=== PATIENT | female | born 1950 | race Caucasian/White ===

== ENCOUNTER → 2020-12-11 08:22 | Outpatient (CLI) | payer MEDICARE, MEDICAID, SELFPAY ==
[2020-12-11] MEDS: COVID-19 VACC, Ad26(JANSSEN)/PF 0.5 ML IM (08:29)
== END ==
PROVIDERS: Visit Provider Internal Medicine
DX: Z23 Encounter for immunization (principal)
CPT/HCPCS: 0031A; 91303

== ENCOUNTER → 2021-08-05 11:52 | Outpatient (CLI) | payer MEDICARE, MEDICAID, SELFPAY ==
--- NOTE | 2021-08-05 12:02 | DI.RAD.S_ITS ---
PROCEDURE: XR KNEE LT 3V INDICATIONS: KNEE PAIN TECHNIQUE: 3 views of the knee were acquired. COMPARISON: None. FINDINGS: Bones: No fractures or dislocations. No suspicious bony lesions. Minimal patellofemoral and medial compartment osteophytosis. The joint spaces are maintained. Soft tissues: No joint effusion. No suspicious soft tissue calcifications. IMPRESSION: No acute osseous abnormality. Dictated by: Del Ray M.D. on 08/05/2021 at 12:48 Approved by: Del Ray M.D. on 08/05/2021 at 12:48
== END ==
PROVIDERS: Referring Provider Family Medicine; Visit Provider Family Medicine
DX: M25.562 Pain in left knee
CPT/HCPCS: 73562

== ENCOUNTER → 2023-04-18 07:08 | Outpatient (CLI) | payer OTHER, SELFPAY ==
--- NOTE | 2023-04-18 | DI.US.S_ITS ---
PROCEDURE: US ABDOMEN LIMITED INDICATIONS: LEFT GROIN PAIN TECHNIQUE: Real-time focused scanning was performed of the abdomen, with image documentation. COMPARISON: None. FINDINGS: Limited ultrasound examination of left inguinal region shows no inguinal hernia. No soft tissue mass or fluid. No enlarged lymph nodes. IMPRESSION: No abnormality is seen in left inguinal region to account for patient's symptoms. Dictated by: Jerome Tellez M.D. on 04/18/2023 at 9:54 Approved by: Jerome Tellez M.D. on 04/18/2023 at 9:55
== END ==
PROVIDERS: PCP Family Medicine; Referring Provider Family Medicine; Visit Provider Family Medicine
DX: R10.32 Left lower quadrant pain (principal)
CPT/HCPCS: 76705

== ENCOUNTER → 2023-06-30 12:15 | Outpatient (CLI) | payer OTHER, MEDICAID, SELFPAY ==
[2023-06-30 15:33] LABS: Add Manual Diff / Slide Review NO; Basophils Absolute Auto 100 /uL (0-100); Basophils Percent Auto 1.4 % (0-2); Eosinophils Absolute Auto 100 /uL (0-450); Hematocrit 39.3 % (36-46); Hemoglobin 13.4 g/dL (12.0-16.0); Lymphocytes Absolute Auto 1700 /uL (1100-4500); Lymphocytes Percent Auto 40.2 % (25-40); Mean Corpuscular HGB Conc 34.2 % (30-36); Mean Corpuscular Hemoglobin 31.3 PG (26-34); Mean Corpuscular Volume 91.5 fL (80-100); Monocytes Absolute Auto 400 /uL (0-900); Monocytes Percent Auto 9.9 % (3-14); Neutrophils Absolute Auto 2000 /uL (1500-7000); Neutrophils Percent Auto 45.5 % (50-75); Platelet Count 199 X10^3/uL (150-400); Red Blood Cell Count 4.29 X10^6/uL (4.0-5.2); Red Cell Distribution Width 13.2 % (11.6-14.8); White Blood Cell Count 4.3 X10^3/uL (4.5-11.0)
[2023-06-30 15:37] LABS: Hemoglobin A1C% w Est Avg Glu 5.2 % (4.0-6.0)
[2023-06-30 15:56] LABS: BUN Creatinine Ratio 13.3 (6-22); Blood Urea Nitrogen 11 mg/dL (7-17); Calcium 9.8 mg/dL (8.4-10.2); Carbon Dioxide 27 mmol/L (22-32); Chloride 102 mmol/L (98-107); Estimated Glomerular Filt Rate > 60 mL/min (>60); Glucose 80 mg/dL (80-110); HEMOLYSIS < 15 (0-50); Potassium 4.3 mmol/L (3.4-5.1); Sodium 137 mmol/L (137-145)
[2023-06-30 16:40] LABS: Appearance Urine UA CLEAR; Bilirubin Urine UA NEGATIVE (NEGATIVE); Color Urine UA YELLOW; Glucose Urine UA NEGATIVE (Negative); Ketones Urine UA NEGATIVE (NEGATIVE); Leukocyte Esterase Urine UA NEGATIVE (NEGATIVE); Nitrite Urine UA NEGATIVE (Negative); Occult Blood Urine UA NEGATIVE (Negative); Protein Urine UA NEGATIVE (Negative); Specific Gravity Urine UA <=1.005 (1.000-1.035); Urobilinogen Urine UA 0.2 E.U./dL (0.2)
[2023-06-30 17:03] LABS: Bacteria Urine None Seen; Culture Indicated Urine Cult Not Indicated; RBC Urine None Seen (0-5/HPF); Squamous Epithelial Cell Urine 0-1 /HPF (0-5/HPF); WBC Urine 0-1/HPF (0-5/HPF)
== END ==
PROVIDERS: PCP Family Medicine; Referring Provider Orthopaedic Surgery; Visit Provider Orthopaedic Surgery
DX: Z01.818 Encounter for other preprocedural examination (principal); R73.9 Hyperglycemia, unspecified; Z01.812 Encounter for preprocedural laboratory examination; N39.0 Urinary tract infection, site not specified
CPT/HCPCS: 36415; 80048; 81001; 83036; 85025; 93005

== ENCOUNTER 2023-11-29 14:39 | Emergency (ER) | payer OTHER, MEDICAID, SELFPAY ==
[2023-11-29 14:42] VITALS: BP 173/78; PULSE 74; RESP 18; TEMP 36.4; O2SAT 95; BMI 19.8
[2023-11-29] MEDS: SODIUM CHLORIDE 0.9% 1,000 ML 1000 ML IV (15:11)
[2023-11-29] MEDS: ONDANSETRON 4 MG/2 ML INJ IV (15:14)
[2023-11-29 15:24] LABS: Add Manual Diff / Slide Review NO; Basophils Absolute Auto 100 /uL (0-100); Eosinophils Absolute Auto 0 /uL (0-450); Eosinophils Percent Auto 0.2 % (2-4); Hematocrit 42.3 % (36-46); Hemoglobin 14.5 g/dL (12.0-16.0); Lymphocytes Absolute Auto 1300 /uL (1100-4500); Lymphocytes Percent Auto 20.7 % (25-40); Mean Corpuscular HGB Conc 34.3 % (30-36); Mean Corpuscular Hemoglobin 30.8 PG (26-34); Mean Corpuscular Volume 89.8 fL (80-100); Monocytes Absolute Auto 500 /uL (0-900); Monocytes Percent Auto 7.9 % (3-14); Neutrophils Absolute Auto 4600 /uL (1500-7000); Neutrophils Percent Auto 70.2 % (50-75); Platelet Count 227 X10^3/uL (150-400); Red Blood Cell Count 4.71 X10^6/uL (4.0-5.2); White Blood Cell Count 6.5 X10^3/uL (4.5-11.0)
--- NOTE | 2023-11-29 15:33 | PC.NURSE ---
patient states she was bit by her cat on Tuesday, she saw her PCP for this on Tuesday and was prescribed two antibiotics. her first dose was at 1700 Tuesday night. by 2099 he was feeling nauseated. Tuesday morning she started throwing up and her last dose of Abx was Tuesday morning.
[2023-11-29 15:37] LABS: Alanine Aminotransferase 22 IU/L (<35); Albumin 4.6 g/dL (3.5-5.0); Albumin Globulin Ratio 1.2 (1.0-2.8); Alkaline Phosphatase 90 U/L (38-126); Aspartate Aminotransferase 37 IU/L (14-36); BUN Creatinine Ratio 34.9 (6-22); Bilirubin Total 0.8 mg/dL (0.2-1.3); Blood Urea Nitrogen 22 mg/dL (7-17); Calcium 9.7 mg/dL (8.4-10.2); Carbon Dioxide 26 mmol/L (22-32); Chloride 102 mmol/L (98-107); Estimated Glomerular Filt Rate > 60 mL/min (>60); Globulin 3.9 g/dL (1.7-4.1); Glucose 127 mg/dL (80-110); HEMOLYSIS < 15 (0-50); Lipase 226 U/L (23-300); Potassium 3.1 mmol/L (3.4-5.1); Sodium 140 mmol/L (137-145); Total Protein 8.5 g/dL (6.3-8.2)
[2023-11-29 16:47] VITALS: PULSE 61; O2SAT 97
[2023-11-29] MEDS: SODIUM CHLORIDE 0.9% 1,000 ML 250 ML IV (16:48)
[2023-11-29] MEDS: POTASSIUM CHLORIDE IN WATER 10 MEQ/100 ML PIGGYBACK 100 MEQ IV ×2 (16:48→18:05)
[2023-11-29 17:00] VITALS: BP 154/72; PULSE 58; O2SAT 94
[2023-11-29 17:30] VITALS: BP 145/70; PULSE 61; RESP 16; O2SAT 96
[2023-11-29 18:00] VITALS: PULSE 66; O2SAT 96
[2023-11-29 18:03] VITALS: BP 150/68; PULSE 63; O2SAT 96
[2023-11-29 18:34] LABS: Bacteria Urine Occasional (0-1); Calcium Oxalate Crystals Urine Few; Culture Indicated Urine Cult Not Indicated; RBC Urine 0-1/HPF (0-5/HPF); Squamous Epithelial Cell Urine None Seen (0-5/HPF); Urine Volume 10mL (spun); WBC Urine 0-1/HPF (0-5/HPF)
--- NOTE | 2023-11-29 18:46 | ED.NAVMDI ---
HPI - Nausea/Vomiting/Diarrhea General Chief complaint: Nausea/Vomiting/Diarrhea Stated complaint: VOMITTING Time Seen by Provider: 11/29/23 16:33 Source: patient Mode of arrival: EMS History of Present Illness HPI Narrative: Patient is a 73-year-old female who is here for evaluation of several days of nausea and vomiting. States the symptoms started after she was started on antibiotics for a cat bite to her left forearm/hand. This was started by her primary doctor. She can not remember the name of the antibiotics. States she actually has not taken them since Tuesday (greater than 48 hours ago). She feels like that the redness on her hand where the question of an infection was is actually improving. No fevers. Prior to my evaluation she had received nausea medications and stated that she was feeling somewhat better. Related Data Previous Rx's Medication Instructions Recorded ondansetron 4 mg disintegrating 4 mg PO Q6H PRN nausea and 11/29/23 tablet vomiting #14 tabs Allergies Allergy/AdvReac Type Severity Reaction Status Date / Time Penicillins Allergy Unknown childhood Verified 11/29/23 14:46 Review of Systems Constitutional Constitutional: Reports system reviewed and no additional complaints, except as documented Gastrointestinal Gastrointestinal: Reports system reviewed and no additional complaints, except as documented Musculoskeletal Musculoskeletal: Reports system reviewed and no additional complaints, except as documented Integumentary/Breasts Skin/Breast: Reports system reviewed and no additional complaints, except as documented Patient History Social History Smoking Status: Former smoker Smoking Status: Former smoker Substance Use Type: does not use Exam Initial Vital Signs Initial Vital Signs: Vital Signs Temperature 97.6 F 11/29/23 14:42 Pulse Rate 74 11/29/23 14:42 Respiratory Rate 18 11/29/23 14:42 Blood Pressure 173/78 H 11/29/23 14:42 Pulse Oximetry 95 11/29/23 14:42 Oxygen Delivery Method Room Air 11/29/23 14:42 HENMT Head: normal to inspection and normocephalic Resp Effort & Inspection: normal respiratory effort Cardio Rate: regular rate GI Inspection: non-distended Skin Other: Small punctate area of redness on the dorsum of the left forearm just proximal to the wrist. No surrounding erythema. Course Orders Ordered: ED Orders 11/29/23 17:59 Urine Microscopic Stat Discontinued Medications Sodium Chloride (Normal Saline 0.9%) 1,000 mls @ 1,000 mls/hr IV BOLUS ONE Stop: 11/29/23 15:59 Last Infusion: 11/29/23 16:03 Dose: Infused Documented By: Admin: 11/29/23 15:11 Dose: 1,000 mls/hr Documented By: JORGE POTASSIUM CHLORIDE IN WATER (Potassium Cl 10 Meq/100 Ml Jaclyn) 10 meq in 100 mls @ 100 mls/hr IV Q1H BLANK Stop: 11/29/23 20:44 Last Admin: 11/29/23 19:00 Dose: Not Given Documented By: Admin: 11/29/23 19:00 Dose: Not Given Documented By: Infusion: 11/29/23 18:57 Dose: Infused Documented By: Admin: 11/29/23 18:05 Dose: 100 mls/hr Documented By: Infusion: 11/29/23 17:48 Dose: Infused Documented By: Admin: 11/29/23 16:48 Dose: 100 mls/hr Documented By: JORGE Sodium Chloride (Normal Saline 0.9%) 1,000 mls @ 250 mls/hr IV BOLUS ONE Stop: 11/29/23 20:34 Last Infusion: 11/29/23 18:54 Dose: Infused Documented By: Admin: 11/29/23 16:48 Dose: 250 mls/hr Documented By: JORGE Ondansetron HCl (Ondansetron 4 Mg/2 Ml Inj) 4 mg IV NOW PRN PRN Reason: Nausea And Vomiting Last Admin: 11/29/23 15:14 Dose: 4 mg Documented By: JORGE Ondansetron HCl (Ondansetron 4 Mg Odt) 4 mg PO NOW PRN PRN Reason: Nausea And Vomiting Ondansetron HCl (Ondansetron 4 Mg Odt Prepack) 1 bottle MISC DIRECTED ONE Stop: 11/29/23 18:48 Last Admin: 11/29/23 18:59 Dose: 1 bottle Documented By: MARY Vital Signs Vital signs: Vital Signs - 8 hr 11/29/23 16:47 11/29/23 17:00 11/29/23 17:00 Pulse Rate 61 58 L Respiratory Rate Blood Pressure 154/72 H Pulse Oximetry 97 94 Oxygen Delivery Method 11/29/23 17:30 11/29/23 17:30 11/29/23 18:00 Pulse Rate 61 66 Respiratory Rate 16 Blood Pressure 145/70 H Pulse Oximetry 96 96 Oxygen Delivery Method Room Air 11/29/23 18:03 11/29/23 18:03 Pulse Rate 63 Respiratory Rate Blood Pressure 150/68 H Pulse Oximetry 96 Oxygen Delivery Method MDM - Nausea/Vomiting/Diarrhea Lab Data Attestation: I reviewed the patient's lab results. 11/29/23 15:03 11/29/23 15:03 Labs: Lab Results 11/29/23 11/29/23 Range/Units 15:03 17:59 WBC 6.5 (4.5-11.0) X10^3/uL RBC 4.71 (4.0-5.2) X10^6/uL Hgb 14.5 (12.0-16.0) g/dL Hct 42.3 (36-46) % MCV 89.8 (80-100) fL MCH 30.8 (26-34) PG MCHC 34.3 (30-36) % RDW 13.0 (11.6-14.8) % Plt Count 227 (150-400) X10^3/uL Neut % (Auto) 70.2 (50-75) % Lymph % (Auto) 20.7 L (25-40) % [place] % (Auto) 7.9 (3-14) % Eos % (Auto) 0.2 L (2-4) % Baso % (Auto) 1.0 (0-2) % Neut # (Auto) 4600 (1592-4307) /uL Lymph # (Auto) 1300 (9928-3515) /uL [place] # (Auto) 500 (0-900) /uL Eos # (Auto) 0 (0-450) /uL Baso # (Auto) 100 (0-100) /uL Sodium 140 (137-145) mmol/L Potassium 3.1 L (3.4-5.1) mmol/L Chloride 102 (98-107) mmol/L Carbon Dioxide 26 (22-32) mmol/L BUN 22 H (7-17) mg/dL Creatinine 0.63 (0.52-1.04) mg/dL Estimated GFR > 60 (>60) mL/min BUN/Creatinine Ratio 34.9 H (6-22) Glucose 127 H (80-110) mg/dL Calcium 9.7 (8.4-10.2) mg/dL Total Bilirubin 0.8 (0.2-1.3) mg/dL AST 37 H (14-36) IU/L ALT 22 (<35) IU/L Alkaline Phosphatase 90 (38-126) U/L Total Protein 8.5 H (6.3-8.2) g/dL Albumin 4.6 (3.5-5.0) g/dL Globulin 3.9 (1.7-4.1) g/dL Albumin/Globulin Ratio 1.2 (1.0-2.8) Lipase 226 (23-300) U/L Urine RBC 0-1/hpf (0-5/HPF) Urine WBC 0-1/hpf (0-5/HPF) Ur Squamous Epith Cells None seen (0-5/HPF) Calcium Oxalate Crystal Few H Urine Bacteria Occasional (0-1) (None) Ur Culture Indicated? Cult not indicated Vol Urine Centrifuged 10ml (spun) Urine Dip Bedside Urine Glucose Negative Bedside Urine Bilirubin - Negative Bedside Urine Ketone +++ 80 Urine Specific [place] 1.030 Bedside Urine Occult Blood - Negative Bedside Urine pH 6.0 Bedside Urine Protein +/- 15 Bedside Urine Urobilinogen - Negative Bedside Urine Nitrite - Negative Bedside Urine Leukocytes - Negative Esterase MDM Narrative Medical decision making narrative: Patient was feeling better after nausea medication. Was able to tolerate oral intake. She has not taken any antibiotics in 48 hours and the wound that was in question appears well without signs of infection or abscess. Patient would like to not take anymore antibiotics rather than switch to something new. Not unreasonable given the fact that she has not taken antibiotics for the past couple days and the wound certainly isn't worsening. Will discharge home with nausea medication. She was given return precautions. She expressed understanding and agreement. Discharge Plan Departure Patient Disposition: Home Clinical Impression: Vomiting, Hypokalemia Instructions: DI for Vomiting -- Adult Activity Restrictions/Additional Instructions: I do recommend that you stop taking the antibiotics as the nausea having his most likely related to them. Recommend a bland diet and using the nausea medication as needed. Return to the emergency department for new symptoms. Prescriptions: New ondansetron 4 mg tablet,disintegrating 4 mg PO Q6H PRN (Reason: nausea and vomiting) Qty: 14 0RF Referrals: Brody Patrick MD [Primary Care Provider] - Stand Alone Forms: Patient Portal/API
[2023-11-29] MEDS: ONDANSETRON 4 MG ODT PREPACK 1 BOTTLE MISC (18:59)
== END 2023-11-29 19:00 | disposition home or self-care (01) ==
PROVIDERS: Emergency Medicine; Emergency Provider Emergency Medicine; PCP Family Medicine
DX: E87.6 Hypokalemia (principal); R11.2 Nausea with vomiting, unspecified
CPT/HCPCS: 36415; 80053; 81003; 81015; 83690; 85025; 99284; J2405

== ENCOUNTER 2023-11-30 14:30 | Inpatient (IN) | payer OTHER, MEDICAID, SELFPAY ==
[2023-11-30] VITALS (7 sets, daily range): BP systolic 150–172; BP diastolic 65–91; PULSE 58–65; RESP 16–20; TEMP 36.5–37; O2SAT 94–100; BMI 19.8; BMI 21.2
[2023-11-30] MEDS: ONDANSETRON 4 MG/2 ML INJ IV (15:05)
[2023-11-30 15:23] LABS: Add Manual Diff / Slide Review NO; Basophils Absolute Auto 0 /uL (0-100); Basophils Percent Auto 0.6 % (0-2); Eosinophils Absolute Auto 0 /uL (0-450); Eosinophils Percent Auto 0.2 % (2-4); Hematocrit 40.9 % (36-46); Lymphocytes Absolute Auto 1600 /uL (1100-4500); Lymphocytes Percent Auto 24.3 % (25-40); Mean Corpuscular HGB Conc 34.2 % (30-36); Mean Corpuscular Hemoglobin 30.8 PG (26-34); Mean Corpuscular Volume 89.8 fL (80-100); Monocytes Absolute Auto 500 /uL (0-900); Monocytes Percent Auto 8.2 % (3-14); Neutrophils Absolute Auto 4300 /uL (1500-7000); Neutrophils Percent Auto 66.7 % (50-75); Platelet Count 231 X10^3/uL (150-400); Red Blood Cell Count 4.56 X10^6/uL (4.0-5.2); White Blood Cell Count 6.5 X10^3/uL (4.5-11.0)
[2023-11-30 15:28] LABS: Prothrombin Time 11.6 SECONDS (9.4-12.5)
[2023-11-30 15:35] LABS: Alanine Aminotransferase 20 IU/L (<35); Albumin 4.1 g/dL (3.5-5.0); Albumin Globulin Ratio 1.2 (1.0-2.8); Alkaline Phosphatase 77 U/L (38-126); Aspartate Aminotransferase 33 IU/L (14-36); BUN Creatinine Ratio 39.3 (6-22); Bilirubin Total 0.6 mg/dL (0.2-1.3); Blood Urea Nitrogen 22 mg/dL (7-17); Calcium 9.4 mg/dL (8.4-10.2); Carbon Dioxide 36 mmol/L (22-32); Chloride 101 mmol/L (98-107); Estimated Glomerular Filt Rate > 60 mL/min (>60); Globulin 3.5 g/dL (1.7-4.1); Glucose 95 mg/dL (80-110); HEMOLYSIS < 15 (0-50); Lipase 259 U/L (23-300); Potassium 3.1 mmol/L (3.4-5.1); Sodium 139 mmol/L (137-145); Total Protein 7.6 g/dL (6.3-8.2)
[2023-11-30] MEDS: SODIUM CHLORIDE 0.9% 1,000 ML 1000 ML IV ×2 (16:17→18:58)
--- NOTE | 2023-11-30 18:14 | ED.NAVMDI ---
HPI - Nausea/Vomiting/Diarrhea General Chief complaint: Nausea/Vomiting/Diarrhea Stated complaint: Vomiting Time Seen by Provider: 11/30/23 16:07 Source: patient Mode of arrival: Ambulatory Limitations: no limitations History of Present Illness HPI Narrative: Patient is a 73-year-old female who arrives in the emergency department today for fevers and continued vomiting. I evaluated her here in the emergency department approximately 24 hours ago for the same symptoms. During that visit she had a relatively benign exam and labs and after nausea medication was tolerating oral intake the patient was discharged home. She returns today for continued symptoms. She states that despite the nausea she continues to vomit. Denies any urinary symptoms or change in bowel habits. No specific abdominal tenderness except for when she has episodes of vomiting. She also states she is having continued fevers. No chest pain or shortness of breath. Related Data Home Medications Medication Instructions Recorded Confirmed duloxetine 20 mg capsule,delayed 20 mg PO BID 11/30/23 11/30/23 release gabapentin 300 mg capsule 900 mg PO BEDTIME PRN Restless 11/30/23 11/30/23 Leg(S) metronidazole 500 mg tablet 500 mg PO 3XD 11/30/23 11/30/23 Previous Rx's Medication Instructions Recorded ondansetron 4 mg disintegrating 4 mg PO Q6H PRN nausea and 11/29/23 tablet vomiting #14 tabs Allergies Allergy/AdvReac Type Severity Reaction Status Date / Time Penicillins Allergy Unknown childhood Verified 11/29/23 14:46 Review of Systems Review of Systems ROS Unobtainable: All systems reviewed & are unremarkable except as noted in HPI and below Patient History Social History household members: none Smoking Status: Former smoker alcohol intake: never Smoking Status: Former smoker Substance Use Type: does not use Exam Initial Vital Signs Initial Vital Signs: Vital Signs Temperature 98.2 F 11/30/23 14:50 Pulse Rate 63 11/30/23 14:50 Respiratory Rate 18 11/30/23 14:50 Blood Pressure 153/91 H 11/30/23 14:50 Pulse Oximetry 94 11/30/23 14:50 Oxygen Delivery Method Room Air 11/30/23 14:50 Const General: cooperative and No ill appearing HENMT Head: normal to inspection and normocephalic GI Inspection: normal to inspection and non-distended Palpation: soft, No firm, No guarding and tender (Diffuse) Skin General: no rashes or lesions noted Neuro General: patient alert, patient awake, patient oriented x3 and moves all extremities Extrem General: capillary refill normal Course Orders Ordered: ED Orders 11/30/23 20:15 Consult to General Surgery Stat Acetaminophen (Acetaminophen 325 Mg Tablet) 650 mg PO Q6H PRN PRN Reason: Fever/Mild Pain (1-3) Hydromorphone HCl (Hydromorphone 0.5 Mg Inj) 0.5 mg IV Q2H PRN PRN Reason: Pain, Severe (7-10) Dextrose/Sodium Chloride (Dextrose 5%-0.45% Ns) 1,000 mls @ 100 mls/hr IV CONT BLANK Last Admin: 11/30/23 22:12 Dose: 100 mls/hr Documented By: ENOCH Levofloxacin (Levaquin) 250 mg in 50 mls @ 50 mls/hr IV Q24H BLANK Ibuprofen (Ibuprofen 600 Mg Tablet) 600 mg PO Q6H PRN PRN Reason: Fever/Mild Pain (1-3) Naloxone HCl (Naloxone 0.4 Mg/Ml Vial) 0.2 mg IV Q2MIN PRN PRN Reason: Opiate Reversal Ondansetron HCl (Ondansetron 4 Mg/2 Ml Inj) 4 mg IV NOW PRN PRN Reason: Nausea And Vomiting Last Admin: 11/30/23 15:05 Dose: 4 mg Documented By: USMAN Ondansetron HCl (Ondansetron 4 Mg Odt) 4 mg PO NOW PRN PRN Reason: Nausea And Vomiting Oxycodone HCl (Oxycodone Ir 5 Mg Tablet) 5 mg PO Q3H PRN PRN Reason: Pain, Moderate (4-6) Discontinued Medications Sodium Chloride (Normal Saline 0.9%) 1,000 mls @ 1,000 mls/hr IV BOLUS ONE Stop: 11/30/23 16:48 Last Infusion: 11/30/23 17:28 Dose: Infused Documented By: Admin: 11/30/23 16:17 Dose: 1,000 mls/hr Documented By: SIRENA Sodium Chloride (Normal Saline 0.9%) 1,000 mls @ 1,000 mls/hr IV BOLUS ONE Stop: 11/30/23 17:06 Last Admin: 11/30/23 18:48 Dose: Not Given Documented By: SIRENA Sodium Chloride (Normal Saline 0.9%) 1,000 mls @ 1,000 mls/hr IV BOLUS ONE Stop: 11/30/23 19:13 Last Admin: 11/30/23 18:58 Dose: 1,000 mls/hr Documented By: SIRENA Levofloxacin (Levaquin) 500 mg in 100 mls @ 100 mls/hr IV NOW ONE Stop: 11/30/23 21:44 Last Admin: 11/30/23 21:32 Dose: 100 mls/hr Documented By: DAVID Lorazepam (Lorazepam 2 Mg/Ml Inj) 0.5 mg IV NOW ONE Stop: 11/30/23 18:15 Last Admin: 11/30/23 18:57 Dose: 0.5 mg Documented By: SIRENA Vital Signs Vital signs: Vital Signs - 8 hr 11/30/23 14:50 Temperature 98.2 F Pulse Rate 63 Respiratory Rate 18 Blood Pressure 153/91 H Pulse Oximetry 94 Oxygen Delivery Method Room Air MDM - Nausea/Vomiting/Diarrhea Medical Records Attestation: I reviewed the patient's medical records. Lab Data Attestation: I reviewed the patient's lab results. 11/30/23 15:06 11/30/23 15:06 Labs: Lab Results 11/30/23 11/30/23 Range/Units 15:06 19:00 WBC 6.5 (4.5-11.0) X10^3/uL RBC 4.56 (4.0-5.2) X10^6/uL Hgb 14.0 (12.0-16.0) g/dL Hct 40.9 (36-46) % MCV 89.8 (80-100) fL MCH 30.8 (26-34) PG MCHC 34.2 (30-36) % RDW 13.0 (11.6-14.8) % Plt Count 231 (150-400) X10^3/uL Neut % (Auto) 66.7 (50-75) % Lymph % (Auto) 24.3 L (25-40) % [place] % (Auto) 8.2 (3-14) % Eos % (Auto) 0.2 L (2-4) % Baso % (Auto) 0.6 (0-2) % Neut # (Auto) 4300 (5060-4801) /uL Lymph # (Auto) 1600 (8687-2337) /uL [place] # (Auto) 500 (0-900) /uL Eos # (Auto) 0 (0-450) /uL Baso # (Auto) 0 (0-100) /uL PT 11.6 (9.4-12.5) SECONDS INR 1.0 (0.9-1.3) Sodium 139 (137-145) mmol/L Potassium 3.1 L (3.4-5.1) mmol/L Chloride 101 (98-107) mmol/L Carbon Dioxide 36 H (22-32) mmol/L BUN 22 H (7-17) mg/dL Creatinine 0.56 (0.52-1.04) mg/dL Estimated GFR > 60 (>60) mL/min BUN/Creatinine Ratio 39.3 H (6-22) Glucose 95 (80-110) mg/dL Calcium 9.4 (8.4-10.2) mg/dL Total Bilirubin 0.6 (0.2-1.3) mg/dL AST 33 (14-36) IU/L ALT 20 (<35) IU/L Alkaline Phosphatase 77 (38-126) U/L Total Protein 7.6 (6.3-8.2) g/dL Albumin 4.1 (3.5-5.0) g/dL Globulin 3.5 (1.7-4.1) g/dL Albumin/Globulin Ratio 1.2 (1.0-2.8) Lipase 259 (23-300) U/L SARS-CoV-2 (PCR) Negative (Negative) Influenza A (RT-PCR) Flu a negative (NEGATIVE) Influenza B (RT-PCR) Flu b negative (NEGATIVE) RSV (PCR) Negative (Negative) Urine Dip Bedside Urine Glucose Negative Bedside Urine Bilirubin - Negative Bedside Urine Ketone +++ 80 Urine Specific [place] 1.030 Bedside Urine Occult Blood - Negative Bedside Urine pH 6.0 Bedside Urine Protein - Negative Bedside Urine Urobilinogen - Negative Bedside Urine Nitrite - Negative Bedside Urine Leukocytes - Negative Esterase Imaging Data CT scan - abdomen/pelvis: Radiologist's Impression: PROCEDURE: CT ABDOMEN W CON INDICATIONS: fever and vomiting TECHNIQUE: After the administration of intravenous contrast, 5 mm thick sections acquired from the diaphragms to the iliac crests. 5 mm thick coronal and sagittal reformats were acquired. For radiation dose reduction, the following was used: automated exposure control, adjustment of mA and/or kV according to patient size. COMPARISON: None. FINDINGS: Image quality: Diagnostic. Lower Chest: No significant findings. ABDOMEN: Liver: No solid mass. Gallbladder: Marked distension of the gallbladder, with a stone at the gallbladder neck measuring 1.6 centimeters. May mild wall thickening at the neck of the gallbladder. Biliary ducts: No biliary dilation. Pancreas: No ductal dilation. Spleen: Size is within normal limits. Adrenal Glands: No adrenal nodules. Kidneys and Ureters: No hydronephrosis. No solid mass. No complex renal cystic lesion which requires follow up. Stomach and Bowel: Normal colonic caliber, without significant wall thickening. Peritoneum: No abnormal intraperitoneal fluid. No free air. Ventral Wall: No hernia. Abdominal Nodes: No retroperitoneal or mesenteric adenopathy by size criteria. Vessels: Aorta and inferior vena cava are normal in size. Bones: No aggressive osseous abnormality. IMPRESSION: Suspected in acute cholecystitis, with gallbladder hydrops and a large stone at the gallbladder neck, with associated mild gallbladder wall thickening. MDM Narrative Medical decision making narrative: The assumption yesterday when she was seen here in the emergency department that she was vomiting because of the antibiotics that she started to take because of a cat bite. It has now been 3 days since her last dose of antibiotics and she is still vomiting. Advised patient that we should look further into her symptoms as now I am less concerned that it is the antibiotic that is causing her issues and potentially something new. CT scan shows signs of acute cholecystitis. This is in the setting of no leukocytosis and normal LFTs and lipase. I did discuss the case with Dr. Bland. We will admit for further evaluation and treatment of what appears to be acute cholecystitis. Discussed this with the patient. She expressed understanding and agreement as well. Discharge Plan Departure Patient Disposition: Admitted As Inpatient Clinical Impression: Acute cholecystitis Admit Date/Time: 11/30/23 20:15 Admit Provider: Dax Bland
[2023-11-30] MEDS: LORazepam 2 MG/ML INJ 0.5 MG IV (18:57)
--- NOTE | 2023-11-30 19:13 | PC.NURSE ---
Pt was in Ed yesterday. Returns for worsening nausea and vomiting and increased weakness. Pt reports that she cannot keep anything down. Pt also states that the zofran she was prescribed made her more nauseous. Pt a&ox4. Denies fever.
[2023-11-30 19:56] LABS: Influenza A - CEPHEID Flu A NEGATIVE (NEGATIVE); Influenza B - CEPHEID Flu B NEGATIVE (NEGATIVE); Respiratory Syncytial Virus Negative (Negative)
[2023-11-30 20:22] LABS: COVID-19 CEPHEID 4-PLEX PCR Negative (Negative)
[2023-11-30] MEDS: levoFLOXacin 500 MG/100 ML PIGGYBACK 100 MG IV (21:32)
--- NOTE | 2023-11-30 21:56 | CM.MNRNOTE ---
Pt. admitted to room 209, oriented to her room. Showed her the call light & encouraged to nursing staff for assistance. Denies pain at this time, will continue plan of care & monitor.
[2023-11-30] MEDS: DEXTROSE 5%-0.45% NS 1,000 ML 100 ML IV (22:12)
[2023-12-01] VITALS (16 sets, daily range): BP systolic 138–183; BP diastolic 55–78; PULSE 57–79; RESP 15–92; TEMP 36.3–37.2; O2SAT 18–97; BMI 21.2
--- NOTE | 2023-12-01 | PATH_ITS ---
[facility] Accession Number: [id number] No. of containers..01 Tissue . 01 Material submitted: . gallbladder - GALLBLADDER . 01 Diagnosis: GALLBLADDER, CHOLECYSTECTOMY: Mild chronic, calculous cholecystitis with reactive changes. Negative for dysplasia and malignancy. MRV 12/06/20231648 Local . 01 Electronically signed: . Any Hinson MD, Pathologist NPI- [id number] . 01 Gross description: . The specimen is received in formalin, labeled with the patient's name, , and gallbladder, and consists of a large intact gallbladder measuring 12.0 x 7.0 x 3.1 cm with sands to congested serosa. The cystic duct margin is inked blue. No pericystic lymph node is identified. Opening the specimen reveals the lumen to be filled with numerous yellow, multifaceted calculi measuring up to 1.6 cm in greatest dimension grossly obstructing the cystic duct and admixed with sands viscous fluid. The mucosa is sands, trabecular, and diffusely denuded with no discoloration, polyps, or lesions identified. The samaniego average 0.1 cm thick. Operations Dispatcher sections to include the cystic duct margin and full-thickness sections are submitted in cassette A1. ([id number]) /FRR 12/06/20231648 Local . 01 Pathologist provided ICD-10: K80.10 . 01 CPT . 993646 Specimen Comment: A courtesy copy of this report has been sent to [phone] Performed at: 01 [facility] [address] [place] [address] Suite [facility], [place], [place] [id number] MD Barry Centeno MD Phone: [phone]
--- NOTE | 2023-12-01 12:22 | PM.HP.1 ---
History of Present Illness History of Present Illness Date Patient Seen: 12/01/23 Time Patient Seen: 12:22 Chief complaint: Vomiting Narrative: Louise is a 73-year-old woman who presented with several days of nausea and epigastric abdominal pain. A CT scan showed a severely distended gallbladder with a obstructing gallstone in the neck of the gallbladder. [facility] Social History household members: none Smoking Status: Former smoker alcohol intake: never Meds Home Medications and Allergies Home Medications Medication Instructions Recorded Confirmed Type ondansetron 4 mg disintegrating 4 mg PO Q6H PRN nausea and 11/29/23 11/30/23 Rx tablet vomiting #14 tabs duloxetine 20 mg capsule,delayed 20 mg PO BID 11/30/23 11/30/23 History release gabapentin 300 mg capsule 900 mg PO BEDTIME PRN Restless 11/30/23 11/30/23 History Leg(S) metronidazole 500 mg tablet 500 mg PO 3XD 11/30/23 11/30/23 History Allergies Allergy/AdvReac Type Severity Reaction Status Date / Time Penicillins Allergy Unknown childhood Verified 11/29/23 14:46 Exam Vital Signs (past 8 hours): - 12/01/23 06:00 12/01/23 07:00 12/01/23 08:00 Temperature 98.4 F 98.0 F Pulse Rate 59 L 61 Respiratory Rate 17 16 Blood Pressure 143/58 H 138/66 Pulse Oximetry 94 96 Oxygen Delivery Method Room Air Oxygen Flow Rate 0 0 12/01/23 08:00 Temperature Pulse Rate Respiratory Rate Blood Pressure Pulse Oximetry 96 Oxygen Delivery Method Room Air Oxygen Flow Rate Oxygen Delivery Method Room Air Oxygen Flow Rate 0 Narrative Exam Narrative: Abdomen is soft Negative Ro's sign Objective Labs 11/30/23 15:06 11/30/23 15:06 Labs: Laboratory Results - last 24 hr 11/30/23 11/30/23 15:06 19:00 WBC 6.5 RBC 4.56 Hgb 14.0 Hct 40.9 MCV 89.8 MCH 30.8 MCHC 34.2 RDW 13.0 Plt Count 231 Neut % (Auto) 66.7 Lymph % (Auto) 24.3 L [place] % (Auto) 8.2 Eos % (Auto) 0.2 L Baso % (Auto) 0.6 Neut # (Auto) 4300 Lymph # (Auto) 1600 [place] # (Auto) 500 Eos # (Auto) 0 Baso # (Auto) 0 PT 11.6 INR 1.0 Sodium 139 Potassium 3.1 L Chloride 101 Carbon Dioxide 36 H BUN 22 H Creatinine 0.56 Estimated GFR > 60 BUN/Creatinine Ratio 39.3 H Glucose 95 Calcium 9.4 Total Bilirubin 0.6 AST 33 ALT 20 Alkaline Phosphatase 77 Total Protein 7.6 Albumin 4.1 Globulin 3.5 Albumin/Globulin Ratio 1.2 Lipase 259 SARS-CoV-2 (PCR) Negative Influenza A (RT-PCR) Flu a negative Influenza B (RT-PCR) Flu b negative RSV (PCR) Negative Assessment & Plan Assessment and plan (1) Acute cholecystitis: Status: Acute Plan We reviewed the risks and benefits of laparoscopic cholecystectomy for acute cholecystitis and she would like to proceed. Quality VTE Deep Vein Thrombosis/Pulmonary Embolism Present on Admission: No
--- NOTE | 2023-12-01 14:17 | PC.NURSE ---
1416--to OR via bed
[2023-12-01] MEDS: ONDANSETRON 4 MG/2 ML INJ IV (14:37)
[2023-12-01] MEDS: LACTATED RINGERS 1,000 ML 42 ML IV (14:38)
--- NOTE | 2023-12-01 15:12 | CM.DANOTE ---
Initial DCP Assessment Note Reviewed EMR and team rounds for pt's medical status and updates. This PRODUCTION TROUBLESHOOTER was not able to meet with pt in person at the time of this assessment due to her being in surgery. Pt resides independently in her own home, unable to assess support system at this time. Will continue to assess d/c needs once pt is available post-operatively. Payor: Arlene Laird PCP: Dr. Patrick Pt is a 73 year-old F who presented for the last 2-days to the ED with c/o persistent fevers, nausea and vomiting. CT imaging in the ED revealed a very distended gallbladder and a stone in the neck of the gallbladder. Surgery was consulted, and a plan was made to admit pt for planned laparoscopic cholecystectomy, which is currently being done. DCP will continue to follow and assist with any evolving home d/c needs, likely tomorrow. Discharge Planning/Care Management CM Discharge Assessment Start: 12/01/23 15:08 Freq: Status: Active Protocol: Document 12/01/23 15:11 DPL (Rec: 12/01/23 15:12 DPL [id number]) Discharge Planning Assessment Assigned Plastic Surgery Manager BRIDGET Huertas Advance Directives? Yes: POLST Advance Directives on File No History Provided By Medical Record Expected Length of Stay 2 Has Patient been admitted in last 30 No days? Prior Living Arrangements House Household Members none Type of transporation used prior to Drives own vehicle admit Independent with ADL's Yes Is patient alert and oriented? Yes Caregiver for Another No Comment U/K, pt was in surgery at the time of this assessment. Comment No anticipated home d/c needs at this time. Barriers to Discharge No Discharge Plan Home Transportation Arrangement Friend Referrals Initiated None needed Review Status In Process Please Provide Date Initial DC 12/01/23 Assessment Was Performed
--- NOTE | 2023-12-01 15:39 | SUR.OPER ---
Supine on padded OR bed, head on pillow, right arm secured on padded arm board at <90 degrees abduction, left arm padded and tucked at side. legs uncrossed, safety belt at thigh, tape over blanket over lower legs.
[2023-12-01] MEDS: BUPIVACAINE 0.5% (PF) 30 ML, EPINEPHrine 0.15 MG INJ (16:13)
--- NOTE | 2023-12-01 17:13 | PC.NURSE ---
report given to Georgia Fitch RN
--- NOTE | 2023-12-01 17:28 | PM.OP.1 ---
Operative Date/Time/Diagnoses Date of procedure: 12/01/23 Time of procedure: 17:28 Pre-op diagnosis: Acute cholecystitis Post-op diagnosis: same Procedure & Clinicians Procedure: Laparoscopic cholecystectomy Same procedure as scheduled: Yes Surgeon: Rojelio Rajan Anesthesia Type: General Operative Notes Procedure in detail: The patient was given preoperative antibiotics. The patient was brought to the operating room and placed on the table in the supine position. General endotracheal anesthesia was induced. The abdomen was prepped and draped. A time-out was performed. We made a 1 cm infraumbilical incision. We dissected down to the base of the umbilical stalk using cautery. We grasped the umbilical stalk with a Villa clamp to elevate the abdominal wall. We scored the fascia in the midline with cautery. We pierced the peritoneum with a Peon clamp. The Bailee port was placed and the abdomen was insufflated to 15 mmHg. A 5 mm 30 degree laparoscopic was inserted. There was no evidence of any injury from the entry. Next, we placed 5 mm ports in the subxiphoid position and right upper quadrant at the midclavicular line and anterior axillary line. The patient was then positioned in reverse Trendelenburg and the table was tilted to the left. The gallbladder was significantly distended and was decompressed with an aspiration needle. Approximately 100 mL of relatively clear fluid was aspirated consistent with a gallbladder hydrops. Once decompressed the gallbladder was then grasped at the dome and retracted cephalad. We then dissected the cystic structures with a combination of hook cautery and blunt dissection. We obtained a critical view. We placed clips on the cystic duct and artery and divided the cystic duct and artery sharply between the clips. The gallbladder was then dissected off the liver and placed in a specimen retrieval bag. We irrigated the right upper quadrant and all the aspirate returned clear. We then removed the 5 mm ports under direct vision we removed the Bailee port. The fascial incision had to be increased to a proximally 2 cm to retrieve the specimen. We then injected some local into the fascia and closed the fascia with 4 interrupted 0 Vicryl sutures. The skin incisions were closed with 4-0 Monocryl and Steri-Strips were applied. Band-Aids were applied over the Steri-Strips. EBL: 20 mL Specimen: Gallbladder and contents Post-operative Condition: stable Disposition: PACU
[2023-12-01] MEDS: ACETAMINOPHEN IV 1,000 MG/100 ML VIAL 400 MG IV (17:35)
--- NOTE | 2023-12-01 18:40 | PC.NURSE ---
Addendum entered by Georgia Saunders R.N. 12/01/23 19:23: Patients blood pressure was 180s/70s, given 10mg of iv labetolol and down to 170s/70s. Will pass on to [employer] Development Specialist Manager RN that this was given. She is resting comfortably. Original Note: Patient back from surgery, she has 4 bandaide dressings and she is snoozing. Blood pressure a bit high at 170/72, called and will give patient 10mg of iv lebatolol. Patients code status also changed to DNR. She is now heplocked and resting.
[2023-12-01] MEDS: LABETALOL 20 MG/4 ML SYRINGE 10 MG IV (19:10)
[2023-12-01] MEDS: DULOXETINE 20 MG CAPSULE PO (21:24)
[2023-12-02] VITALS: BP 161/83; PULSE 60; RESP 16; TEMP 36.6; O2SAT 95
[2023-12-02 04:00] VITALS: O2SAT 100
[2023-12-02 04:40] VITALS: BP 105/62; PULSE 89; RESP 18; TEMP 37; O2SAT 100
[2023-12-02 07:58] VITALS: BP 149/73; PULSE 69; RESP 19; TEMP 36.3; O2SAT 94
[2023-12-02 08:00] VITALS: O2SAT 94
[2023-12-02] MEDS: SCOPOLAMINE 1 PATCH TOP (08:41)
[2023-12-02] MEDS: IBUPROFEN 600 MG TABLET PO (08:41)
[2023-12-02] MEDS: DULOXETINE 20 MG CAPSULE PO (08:42)
--- NOTE | 2023-12-02 09:41 | CM.DPNOTE ---
DCP Note LABORATORY ANIMAL CARETAKER reviewed EMR. Per chart review, dc order in. LABORATORY ANIMAL CARETAKER entered room and introduced self and role. pt standing in room. Pt reports living alone/is indep at baseline. Uses a cane. LABORATORY ANIMAL CARETAKER answered questions about HH. LABORATORY ANIMAL CARETAKER answered questions about Medicaid benefits. Pt reports she has friends/neighbors to support her with her needs. f/u with PCP already schedule for next week (Dr. Patrick). Pt reports ride will be here at 11am. LABORATORY ANIMAL CARETAKER updated RN about ride. Plan; pt to dc home today with friend to transport. No CM needs at this time. Pt will f/u with PCP next week. CM team will follow as needed. BRIDGET Jarvis
--- NOTE | 2023-12-02 10:59 | PC.NURSE ---
Pt discharged home at 1045, escorted off floor in wheelchair accompanied by hospital staff. IV removed, discharge teaching completed including new medications, wound care and follow up appointments. No questions or concerns. Patient left the floor with all belongings.
== END 2023-12-02 10:55 | disposition home or self-care (01) | DRG 419 ==
LOC: ED 20:15 → AC 20:16
PROVIDERS: Emergency Medicine; Surgery; Admitting Provider Surgery; Emergency Provider Emergency Medicine; PCP Family Medicine; Referring Provider Emergency Medicine; Visit Provider Surgery
PROC: 0FT44ZZ Resection of Gallbladder, Percutaneous Endoscopic Approach (ICD-10-PCS; CPT 47562; principal; 2023-12-01 15:45)
DX: K80.01 Calculus of gallbladder with acute cholecystitis with obstruction (principal); E87.6 Hypokalemia; Z87.891 Personal history of nicotine dependence
CPT/HCPCS: 0241U; 36415; 47562; 74160; 80053; 81003; 81015; 83690; 85025; 85610; 96374; 99221; 99284; 99285; J0136; J0171; J1100; J1956; J2060; J2405; J2704; J3010

== ENCOUNTER 2024-03-21 12:12 | Emergency (ER) | payer OTHER, MEDICAID, SELFPAY ==
[2023-11-30 21:43] VITALS: BMI 21.2
[2024-03-21] VITALS (11 sets, daily range): BP systolic 100–133; BP diastolic 50–58; PULSE 75–87; RESP 15–24; TEMP 37.2; O2SAT 92–97; BMI 19.8
--- NOTE | 2024-03-21 12:18 | ED_ITS ---
HPI - Nausea/Vomiting/Diarrhea General Chief complaint: Nausea/Vomiting/Diarrhea Stated complaint: Vomiting Time Seen by Provider: 03/21/24 12:13 Source: patient Mode of arrival: EMS History of Present Illness HPI Narrative: Patient 73-year-old female history of cholecystectomy in November 2023 presenting today with nausea vomiting and diarrhea. She reports it started around 11:00 p.m. last night. She is unable to keep anything in previously she had these symptoms when she had cholelithiasis however since then she has had a cholecystectomy. She feels a little bit dizzy but she has not passed out. No significant abdominal pain. She has had multiple episodes of nonbloody diarrhea. She denies any chest pain or palpitations. Related Data Home Medications Medication Instructions Recorded Confirmed duloxetine 20 mg capsule,delayed 20 mg PO BID 11/30/23 12/14/23 release gabapentin 300 mg capsule 900 mg PO BEDTIME PRN Restless 11/30/23 12/14/23 Leg(S) metronidazole 500 mg tablet 500 mg PO 3XD 11/30/23 12/14/23 Previous Rx's Medication Instructions Recorded ondansetron 4 mg disintegrating 4 mg PO Q6H PRN nausea and 11/29/23 tablet vomiting #14 tabs tramadol 50 mg tablet 50 mg PO TID PRN pain #14 tabs 12/02/23 ondansetron 4 mg disintegrating 4 mg PO Q8H PRN nausea and 03/21/24 tablet vomiting #10 tabs Allergies Allergy/AdvReac Type Severity Reaction Status Date / Time Penicillins Allergy Unknown childhood Verified 03/21/24 12:14 Patient History Medical History Fibromyalgia Surgical History Hx laparoscopic cholecystectomy Social History household members: none Smoking Status: Former smoker alcohol intake: never Smoking Status: Former smoker alcohol intake frequency: holidays/special occasions only Substance Use Type: does not use Exam Initial Vital Signs Initial Vital Signs: Vital Signs Temperature 98.9 F 03/21/24 12:14 Pulse Rate 87 03/21/24 12:14 Respiratory Rate 15 03/21/24 12:14 Blood Pressure 133/58 L 03/21/24 12:14 Pulse Oximetry 93 03/21/24 12:14 Oxygen Delivery Method Room Air 03/21/24 12:14 GENERAL: Alert well-appearing 73-year-old female HEENT: Head atraumatic,EOMI, pupils reactive, face symmetric, Dr. mucous membranes CARDIOVASCULAR: Regular rate and rhythm without murmurs, rubs or gallops. RESPIRATORY: Breath sounds equal bilaterally, no wheezes rales or rhonchi. ABDOMEN: Soft, nontender. Normoactive bowel sounds all 4 quadrants. No guarding or rebound. EXTREMITIES: Normal range of motion, no clubbing or edema. Neurovascularly intact NEUROLOGICAL: Alert and oriented x4.Normal gait and speech. SKIN: Warm, dry, no laceration, no petechiae, no rashes or lesions. Course Orders Ordered: ED Orders 03/21/24 12:22 Complete Blood Count AUTO DIFF Stat Comprehensive Metabolic Panel Stat Lipase Stat 03/21/24 12:50 Ictotest Urine Stat Urine Microscopic Stat Discontinued Medications Sodium Chloride (Normal Saline 0.9%) 1,000 mls @ 1,000 mls/hr IV BOLUS ONE Stop: 03/21/24 13:23 Last Infusion: 03/21/24 13:52 Dose: Infused Documented By: Admin: 03/21/24 12:34 Dose: 1,000 mls/hr Documented By: VANCE Ondansetron HCl (Ondansetron 4 Mg/2 Ml Inj) 4 mg IV NOW ONE Stop: 03/21/24 12:25 Last Admin: 03/21/24 12:35 Dose: 4 mg Documented By: VANCE Pantoprazole Sodium (Pantoprazole 40 Mg Vial) 40 mg IV NOW ONE Stop: 03/21/24 12:25 Last Admin: 03/21/24 12:34 Dose: 40 mg Documented By: VANCE Vital Signs Vital signs: Vital Signs - 8 hr 03/21/24 12:14 03/21/24 12:14 03/21/24 12:15 Temperature 98.9 F Pulse Rate 87 87 Respiratory Rate 15 Blood Pressure 133/58 L 133/58 L Pulse Oximetry 93 93 Oxygen Delivery Method Room Air 03/21/24 12:15 03/21/24 12:30 03/21/24 12:30 Temperature Pulse Rate 84 75 Respiratory Rate Blood Pressure 108/53 L Pulse Oximetry 92 92 Oxygen Delivery Method Room Air 03/21/24 13:00 03/21/24 13:00 03/21/24 13:07 Temperature Pulse Rate 80 Respiratory Rate 15 Blood Pressure 100/50 L 102/52 L Pulse Oximetry 93 Oxygen Delivery Method Room Air 03/21/24 13:07 03/21/24 13:16 03/21/24 13:16 Temperature Pulse Rate 86 84 Respiratory Rate 20 20 Blood Pressure 102/51 L Pulse Oximetry 94 97 Oxygen Delivery Method Room Air 03/21/24 13:30 03/21/24 13:31 03/21/24 13:31 Temperature Pulse Rate 80 79 Respiratory Rate 22 Blood Pressure 113/54 L Pulse Oximetry 97 96 Oxygen Delivery Method MDM - Nausea/Vomiting/Diarrhea Lab Data 03/21/24 12:22 03/21/24 12:22 Labs: Lab Results 03/21/24 03/21/24 Range/Units 12:22 12:50 WBC 8.0 (4.5-11.0) X10^3/uL RBC 4.31 (4.0-5.2) X10^6/uL Hgb 13.7 (12.0-16.0) g/dL Hct 39.9 (36-46) % MCV 92.6 (80-100) fL MCH 31.7 (26-34) PG MCHC 34.3 (30-36) % RDW 13.0 (11.6-14.8) % Plt Count 209 (150-400) X10^3/uL Neut % (Auto) 89.5 H (50-75) % Lymph % (Auto) 2.9 L (25-40) % [place] % (Auto) 7.4 (3-14) % Eos % (Auto) 0.1 L (2-4) % Baso % (Auto) 0.1 (0-2) % Neut # (Auto) 7200 H (7059-3926) /uL Lymph # (Auto) 200 L (1006-4669) /uL [place] # (Auto) 600 (0-900) /uL Eos # (Auto) 0 (0-450) /uL Baso # (Auto) 0 (0-100) /uL Sodium 136 L (137-145) mmol/L Potassium 3.7 (3.4-5.1) mmol/L Chloride 106 (98-107) mmol/L Carbon Dioxide 23 (22-32) mmol/L BUN 22 H (7-17) mg/dL Creatinine 0.61 (0.52-1.04) mg/dL Estimated GFR > 60 (>60) mL/min BUN/Creatinine Ratio 36.1 H (6-22) Glucose 152 H (80-110) mg/dL Calcium 8.3 L (8.4-10.2) mg/dL Total Bilirubin 0.9 (0.2-1.3) mg/dL AST 29 (14-36) IU/L ALT 17 (<35) IU/L Alkaline Phosphatase 85 (38-126) U/L Total Protein 7.5 (6.3-8.2) g/dL Albumin 4.2 (3.5-5.0) g/dL Globulin 3.3 (1.7-4.1) g/dL Albumin/Globulin Ratio 1.3 (1.0-2.8) Lipase 496 H (23-300) U/L Ur Bilirubin Confirm Negative (Negative) Urine RBC 0-1/hpf (0-5/HPF) Urine WBC 1-5/hpf (0-5/HPF) Ur Squamous Epith Cells 0-1 /hpf (0-5/HPF) Urine Bacteria Few (2-10) H (None) Urine Mucus 2+ H (Negative) Ur Culture Indicated? Cult not indicated Vol Urine Centrifuged 10ml (spun) Urine Dip Bedside Urine Glucose Negative Bedside Urine Bilirubin + 1 Bedside Urine Ketone - Negative Urine Specific [place] 1.020 Bedside Urine pH 6.0 Bedside Urine Protein - Negative Bedside Urine Urobilinogen - Negative Bedside Urine Nitrite - Negative Bedside Urine Leukocytes - Negative Esterase MDM Narrative Medical decision making narrative: Patient is 73-year-old female presents today with vomiting and diarrhea ongoing since last evening. Unable to tolerate any p.o. fluids. Previously had similar symptoms with cholelithiasis but has since had cholecystectomy. Blood work today is overall reassuring WBC 8.0, hemoglobin 13.7, hematocrit 39.9, platelets 209, sodium 136, potassium 3.7, chloride 106, carbon dioxide 23, BUN, 22, cr, 0.61, glucose 152, lipase 496 Patient has symptoms of vomiting and diarrhea consistent with a gastroenteritis. Abdomen is soft low suspicion for bowel obstruction. Blood work does not show any significant evidence of dehydration no evidence of pancreatitis. She is tolerating p.o. fluids after Zofran. Education on oral rehydration technique. Discharge Plan Departure Patient Disposition: Home Clinical Impression: Gastroenteritis Instructions: DI for Viral Gastroenteritis -- Adult Activity Restrictions/Additional Instructions: *You have been diagnosed with gastroenteritis *What to do: At this time increase fluids as tolerated recommend Pedialyte Gatorade or like product. *Continue to take medications as directed Zofran 4 mg every 8 hours only if needed for nausea or vomiting *Follow up with your primary care provider in 2-3 days or call [phone] *Return to ER if you should have persistent vomiting or diarrhea increasing abdominal pain dizziness lightheadedness [or] any new, worsening or concerning symptoms Prescriptions: New ondansetron 4 mg tablet,disintegrating 4 mg PO Q8H PRN (Reason: nausea and vomiting) Qty: 10 0RF No Action ondansetron 4 mg tablet,disintegrating 4 mg PO Q6H PRN (Reason: nausea and vomiting) Qty: 14 0RF metronidazole 500 mg tablet 500 mg PO 3XD gabapentin 300 mg capsule 900 mg PO BEDTIME PRN (Reason: Restless Leg(S)) duloxetine 20 mg capsule,delayed release(DR/EC) 20 mg PO BID tramadol 50 mg tablet 50 mg PO TID PRN (Reason: pain) Qty: 14 0RF Referrals: Brody Patrick MD [Primary Care Provider] - Stand Alone Forms: Patient Portal/API
[2024-03-21 12:31] LABS: Add Manual Diff / Slide Review NO; Basophils Absolute Auto 0 /uL (0-100); Basophils Percent Auto 0.1 % (0-2); Eosinophils Absolute Auto 0 /uL (0-450); Eosinophils Percent Auto 0.1 % (2-4); Hematocrit 39.9 % (36-46); Hemoglobin 13.7 g/dL (12.0-16.0); Lymphocytes Absolute Auto 200 /uL (1100-4500); Lymphocytes Percent Auto 2.9 % (25-40); Mean Corpuscular HGB Conc 34.3 % (30-36); Mean Corpuscular Hemoglobin 31.7 PG (26-34); Mean Corpuscular Volume 92.6 fL (80-100); Monocytes Absolute Auto 600 /uL (0-900); Monocytes Percent Auto 7.4 % (3-14); Neutrophils Absolute Auto 7200 /uL (1500-7000); Neutrophils Percent Auto 89.5 % (50-75); Platelet Count 209 X10^3/uL (150-400); Red Blood Cell Count 4.31 X10^6/uL (4.0-5.2)
[2024-03-21] MEDS: PANTOPRAZOLE 40 MG VIAL IV (12:34)
[2024-03-21] MEDS: SODIUM CHLORIDE 0.9% 1,000 ML 1000 ML IV (12:34)
[2024-03-21] MEDS: ONDANSETRON 4 MG/2 ML INJ IV (12:35)
[2024-03-21 12:43] LABS: Alanine Aminotransferase 17 IU/L (<35); Albumin 4.2 g/dL (3.5-5.0); Albumin Globulin Ratio 1.3 (1.0-2.8); Alkaline Phosphatase 85 U/L (38-126); Aspartate Aminotransferase 29 IU/L (14-36); BUN Creatinine Ratio 36.1 (6-22); Bilirubin Total 0.9 mg/dL (0.2-1.3); Blood Urea Nitrogen 22 mg/dL (7-17); Calcium 8.3 mg/dL (8.4-10.2); Carbon Dioxide 23 mmol/L (22-32); Chloride 106 mmol/L (98-107); Estimated Glomerular Filt Rate > 60 mL/min (>60); Globulin 3.3 g/dL (1.7-4.1); Glucose 152 mg/dL (80-110); HEMOLYSIS 27 (0-50); Lipase 496 U/L (23-300); Potassium 3.7 mmol/L (3.4-5.1); Sodium 136 mmol/L (137-145); Total Protein 7.5 g/dL (6.3-8.2)
[2024-03-21 13:12] LABS: Ictotest Urine Negative (Negative)
[2024-03-21 13:13] LABS: Urine Volume 10mL (spun)
[2024-03-21 13:24] LABS: Bacteria Urine Few (2-10); Culture Indicated Urine Cult Not Indicated; Mucus Urine 2+ (Negative); RBC Urine 0-1/HPF (0-5/HPF); Squamous Epithelial Cell Urine 0-1 /HPF (0-5/HPF); WBC Urine 1-5/HPF (0-5/HPF)
== END 2024-03-21 14:35 | disposition home or self-care (01) ==
PROVIDERS: Emergency Provider Emergency Medicine; PCP Family Medicine
DX: K52.9 Noninfective gastroenteritis and colitis, unspecified (principal)
CPT/HCPCS: 36415; 80053; 81003; 81015; 83690; 85025; 96374; 96375; 99284; C9113; J2405

== ENCOUNTER → 2024-06-13 14:41 | Outpatient (CLI) | payer OTHER, MEDICAID, SELFPAY ==
[2023-11-30 21:43] VITALS: BMI 21.2
--- NOTE | 2024-06-13 14:45 | DI.RAD.S_ITS ---
PROCEDURE: XR HIP W PEL IF DONE LT 2V INDICATIONS: Present in both SI left hip joint. Right hip is normal. TECHNIQUE: 2 views of the hip were acquired. COMPARISON: None. FINDINGS: Bones: There are no osseous abnormalities. SI and hip joints: Mild degenerative change Soft tissues: No soft tissue swelling, calcification or mass. IMPRESSION: Mild degeneration Dictated by: Rm Peguero M.D. on 06/14/2024 at 13:27 Approved by: Rm Peguero M.D. on 06/14/2024 at 13:28
--- NOTE | 2024-06-13 14:45 | DI.RAD.S_ITS ---
PROCEDURE: XR LUMBAR SPINE 2-3V INDICATIONS: Other chronic pain TECHNIQUE: 3 views of the lumbar spine were acquired. COMPARISON: None. FINDINGS: Lumbar spine curvature and alignment: Slight lumbar curve noted with the apex at L2. Bones: There are no osseous abnormalities. Disc spaces: Mild degenerative disc disease present at L 3 4 and L5-S1. There is mild facet disease L3-4 L4-5 and L5-S1. Intervertebral foramen: Grossly normal in width. Soft tissues: No soft tissue swelling, calcification or mass. IMPRESSION: Mild degeneration. Dictated by: Rm Peguero M.D. on 06/14/2024 at 13:25 Approved by: Rm Peguero M.D. on 06/14/2024 at 13:26
--- NOTE | 2024-06-13 14:45 | DI.RAD.S_ITS ---
PROCEDURE: XR THORACIC SPINE 3V INDICATIONS: Other chronic pain TECHNIQUE: 3 views of the thoracic spine were acquired. COMPARISON: None. FINDINGS: Thoracic spine curvature and alignment: Slight rightward curve noted. Bones: Minimal chronic wedging of the upper and midthoracic vertebral bodies from approximately T2 through T8 noted. This is likely due to mild chronic Scheuermann's disease or osteoporosis. Disc spaces: Moderate degenerative disc disease seen throughout the midthoracic spine. Intervertebral foramen: Grossly normal in width. Soft tissues: No soft tissue swelling, calcification or mass. IMPRESSION: Moderate degenerative disc disease midthoracic spine. Probable minimal chronic Scheuermann's disease in the upper midthoracic spine. Consider DEXA scanning to evaluate for osteoporosis Dictated by: Rm Peguero M.D. on 06/14/2024 at 13:23 Approved by: Rm Peguero M.D. on 06/14/2024 at 13:25
== END ==
PROVIDERS: PCP Family Medicine; Referring Provider Family Medicine; Visit Provider Family Medicine
DX: M51.34 Other intervertebral disc degeneration, thoracic region (principal); M51.17 Intervertebral disc disorders with radiculopathy, lumbosacral region; M47.26 Other spondylosis with radiculopathy, lumbar region; M51.16 Intervertebral disc disorders with radiculopathy, lumbar region; M47.27 Other spondylosis with radiculopathy, lumbosacral region; M16.12 Unilateral primary osteoarthritis, left hip; M25.552 Pain in left hip; G89.29 Other chronic pain
CPT/HCPCS: 72072; 72100; 73502

== ENCOUNTER → 2024-07-27 15:29 | Outpatient (CLI) | payer OTHER, MEDICAID, SELFPAY ==
[2023-11-30 21:43] VITALS: BMI 21.2
--- NOTE | 2024-07-27 15:30 | DI.MRI.S_ITS ---
PROCEDURE: MR LUMBAR SPINE WO CON INDICATIONS: LUMBAR STENOSIS TECHNIQUE: Noncontrast sagittal T1 spin echo and T2 fast echo, sagittal STIR, and T2 fast spin echo through the lumbar spine. In cases with scoliosis, additional coronal T2 fast spin echo may be performed. COMPARISON: [facility], CR, XR LUMBAR SPINE 2-3V, 06/13/2024, 14:49. FINDINGS: Image quality: Excellent. Alignment and Curvature: There is normal bony alignment. Bone Marrow: Marrow is of normal overall signal. No acute vertebral body compression fractures. Spinal Cord: Conus medullaris terminates at the L1 level. Visualized cord demonstrates normal signal and size. Paraspinous Soft Tissues: No paravertebral masses. T12-L1: Normal appearance. L1-L2: Disc desiccation, facet hypertrophy, right facet effusion, ligamentum flavum hypertrophy. L2-L3: Disc desiccation, broad-based disc bulge, ligamentum flavum hypertrophy, mild spinal canal narrowing. L3-L4: Broad-based disc bulge, facet hypertrophy, ligamentum flavum hypertrophy. Moderate to severe spinal canal narrowing. L4-L5: Broad-based disc bulge, ligamentum flavum hypertrophy, facet hypertrophy, small facet effusions. Mild spinal canal narrowing. L5-S1: Broad-based disc bulge, ligamentum flavum hypertrophy, facet hypertrophy. IMPRESSION: Multilevel degenerative disc disease and facet arthrosis. Of note, there is moderate to severe spinal canal narrowing at L3-4 and mild spinal canal narrowing at L4-5 due to degenerative change. Dictated by: Manfred Grubbs M.D. on 07/27/2024 at 19:07 Approved by: Manfred Grubbs M.D. on 07/27/2024 at 19:11
== END ==
PROVIDERS: PCP Family Medicine; Referring Provider Orthopaedic Surgery Orthopaedic Surgery of the Spine; Visit Provider Orthopaedic Surgery Orthopaedic Surgery of the Spine
DX: M48.062 Spinal stenosis, lumbar region with neurogenic claudication (principal); M51.369 Other intervertebral disc degeneration, lumbar region without mention of lumbar back pain or lower extremity pain; M51.379 Other intervertebral disc degeneration, lumbosacral region without mention of lumbar back pain or lower extremity pain; M47.816 Spondylosis without myelopathy or radiculopathy, lumbar region; M47.817 Spondylosis without myelopathy or radiculopathy, lumbosacral region
CPT/HCPCS: 72148

== ENCOUNTER → 2024-07-31 12:13 | Outpatient (CLI) | payer OTHER, MEDICAID, SELFPAY ==
[2023-11-30 21:43] VITALS: BMI 21.2
--- NOTE | 2024-07-31 12:55 | EKG_ITS ---
[address] [address] Test Date: 2024-07-31 Pat Name: Louise Powers Department: [facility] Room: Gender: Female Placement Coordinator: ISAC : 1950 Requested By: Order Number: [id number] Reading MD: Vinay Whitman Measurements Intervals [place] Rate: 64 P: 80 NM: 146 QRS: -6 QRSD: 76 T: 52 QT: 390 QTc: 402 Interpretive Statements Normal sinus rhythm Electronically Signed On 07-31-2024 14:44:50 PDT by Vinay Whitman
[2024-07-31 13:14] LABS: Add Manual Diff / Slide Review NO; Basophils Absolute Auto 100 /uL (0-100); Eosinophils Absolute Auto 300 /uL (0-450); Eosinophils Percent Auto 4.7 % (2-4); Hematocrit 38.7 % (36-46); Hemoglobin 13.2 g/dL (12.0-16.0); Lymphocytes Absolute Auto 1700 /uL (1100-4500); Lymphocytes Percent Auto 29.6 % (25-40); Mean Corpuscular HGB Conc 34.1 % (30-36); Mean Corpuscular Hemoglobin 31.2 PG (26-34); Mean Corpuscular Volume 91.3 fL (80-100); Monocytes Absolute Auto 500 /uL (0-900); Neutrophils Absolute Auto 3200 /uL (1500-7000); Neutrophils Percent Auto 55.7 % (50-75); Platelet Count 203 X10^3/uL (150-400); Red Blood Cell Count 4.25 X10^6/uL (4.0-5.2); Red Cell Distribution Width 13.4 % (11.6-14.8); White Blood Cell Count 5.7 X10^3/uL (4.5-11.0)
[2024-07-31 13:38] LABS: BUN Creatinine Ratio 10.4 (6-22); Blood Urea Nitrogen 8 mg/dL (7-17); Calcium 9.7 mg/dL (8.4-10.2); Carbon Dioxide 27 mmol/L (22-32); Chloride 103 mmol/L (98-107); Estimated Glomerular Filt Rate > 60 mL/min (>60); Glucose 99 mg/dL (80-110); HEMOLYSIS 55 (0-50); Potassium 4.7 mmol/L (3.4-5.1); Sodium 137 mmol/L (137-145)
== END ==
PROVIDERS: PCP Family Medicine; Referring Provider Orthopaedic Surgery Orthopaedic Surgery of the Spine; Visit Provider Orthopaedic Surgery Orthopaedic Surgery of the Spine
DX: Z01.818 Encounter for other preprocedural examination (principal); Z01.812 Encounter for preprocedural laboratory examination
CPT/HCPCS: 36415; 80048; 85025; 93005

== ENCOUNTER 2024-08-27 13:20 | Day surgery (SDC) | payer OTHER, MEDICAID, SELFPAY ==
[2023-11-30 21:43] VITALS: BMI 21.2
[2024-08-23 10:49] VITALS: BMI 20.4
[2024-08-27] VITALS (14 sets, daily range): BP systolic 107–169; BP diastolic 49–82; PULSE 65–101; RESP 3–18; TEMP 35.6–36.8; O2SAT 93–99; BMI 20.4
[2024-08-27] MEDS: ACETAMINOPHEN 325 MG TABLET 975 MG PO (14:01)
[2024-08-27] MEDS: LACTATED RINGERS 1,000 ML 42 ML IV (14:06)
--- NOTE | 2024-08-27 14:20 | PM.PREOP ---
Pre-operative Note Interval Note History & Physical reviewed/Exam performed by Physician: Yes Changes to H&P: No
[2024-08-27] MEDS: CEFAZOLIN 2 GM/100 ML PREMIX 100 ML IV ×2 (14:53→23:42)
--- NOTE | 2024-08-27 15:03 | SUR.OPER ---
Prone on spine table, head in foam head support, padded chest and pelvic supports, gel pad at knees, lower legs supported by pillows; nipples, genitalia and toes free of pressure, arms secured on foam padded arm boards at <90 degrees abduction. Tape over blanket at thigh secured to table.
[2024-08-27] MEDS: BUPIVACAINE 0.25% (PF) 30 ML, EPINEPHrine 0.15 MG INJ (15:09)
--- NOTE | 2024-08-27 15:20 | DI.RAD.S_ITS ---
PROCEDURE: XR LUMBAR SPINE 2-3V INDICATIONS: L3-L4 LAMINECTOMY TECHNIQUE: 2 intraoperative fluoroscopic views of the lumbar spine were acquired. COMPARISON: [facility], , XR LUMBAR SPINE 2-3V, 06/13/2024, 14:49. FINDINGS: Intraoperative fluoroscopic images shows surgical instrument placed over left posterior aspect of L3-4 level. IMPRESSION: Fluoro guidance was provided intraoperatively for L3-4 laminectomy performed by ordering physician. Dictated by: Jerome Tellez M.D. on 08/27/2024 at 16:50 Approved by: Jerome Tellez M.D. on 08/27/2024 at 16:51
--- NOTE | 2024-08-27 15:22 | PM.OP.1 ---
Operative Date/Time/Diagnoses Date of procedure: 08/27/24 Time of procedure: 14:45 Pre-op diagnosis: 1. L3-4 spinal stenosis 2. Neurogenic claudication Post-op diagnosis: same Procedure & Clinicians Procedure: 1. L3-4 laminectomy with bilateral partial facetecomies 2. Utilization of microsurgical technique and operating microscope Same procedure as scheduled: Yes Indications: Patient has been having chronic back pain and worsening lumbar radiculopathy and symptoms of neurogenic claudication. Patient was found have severe L3-4 spinal stenosis correlating with her symptoms. Patient failed multiple conservative management with worsening pain weakness and numbness in her lower extremity. Patient has been having difficulty performing activity of daily living. After discussing risks benefits of treatment options, patient elected proceed with surgery. Surgeon: Meenakshi Cervantes Phys Assistant: Avis Gutierrez Click Yes if Unassisted: No Anesthesia Type: General Operative Notes Closure Type: primary Estimated Blood Loss (mL): 5 Blood products transfused: none Procedure in detail: Patient was seen in the preoperative area. Risks and benefits of the surgery was discussed with the patient. Informed consent was obtained from the patient and placed in the chart. Surgical site was marked. Patient was taken to the operative room. General anesthesia was administered. Prophylactic antibiotic was given to the patient less than 30 min before the incision was made. Patient was placed into a prone position on the [place] table. Patient's back was then prepped and draped in the sterile fashion. Time-out was performed at this time. Using AP and lateral C-arm imaging the interval between L3-4 was identified and marked on patient's back. A 1 inch incision 1 in from midline was made on the left side. The fascia was incised in line with skin incision. Globus MARS retractors was placed inside the incision and docked onto the L3 lamina. Using microsurgical technique and operating microscope, a L3 laminectomy was performed using a Kerrison rongeur. Liagamentum flavum was resected at the site of the laminotomy. Either side of the dura was exposed. Bilateral partial facetcomies was performed to further decompress the lateral recess. After the laminectomy was completed, the area medial lateral superior and inferior to the area of the laminectomy was inspected and explored using a micro curette. No other impinging structure was identified. The wound was then irrigated with sterile normal saline. 40 mg Depo-Medrol was placed into the epidural space. The deep fascia was closed with 1-0 Vicryl. The subcutaneous tissue was closed with 2-0 Vicryl. The skin was closed with 4-0 Monocryl. Patient tolerated the procedure well. There were no complications. Patient was transferred recovery room in stable condition. The Operation could not have been safely performed without compromising the technical result or length of the procedure, without the assistance of a skilled surgical instrument technician. The surgical instrument technician was medically necessary for proper positioning, retraction and manipulation of instruments, proper exposure, surgical preparation, and manipulation of tissue. Complications: none Post-operative Condition: stable Disposition: PACU Plan for aftercare: Admit for overnight observation
[2024-08-27] MEDS: hydrOXYzine 50 MG/ML INJ 25 MG IM (15:58)
[2024-08-27] MEDS: LACTATED RINGERS 1,000 ML 125 ML IV (17:26)
[2024-08-27] MEDS: DOCUSATE 100 MG CAPSULE PO (20:49)
[2024-08-27] MEDS: DULOXETINE 20 MG CAPSULE PO (20:49)
[2024-08-27] MEDS: SENNOSIDES 8.6 MG TABLET 17.2 MG PO (20:49)
[2024-08-28] MEDS: CEFAZOLIN 2 GM/100 ML PREMIX 100 ML IV (06:31)
--- NOTE | 2024-08-28 07:08 | PM.DS.1 ---
History of Present Illness History of Present Illness Date Patient Seen: 08/28/24 Time Patient Seen: 07:08 Chief complaint: Back pain Narrative: back pain is mild. Patient has been out of bed since surgery. Patient able to urinate on her own. Patient does have assistance at home. Otherwise without complaints. Discharge Providers Provider Discharge Date: 08/28/24 Primary care physician: Brody Patrick MD Consults: 08/27/24 17:08 Consult to Occupational Therapy Evaluate & Treat Comment: Physician Instructions: Evaluate and treat Consult to Physical Therapy Evaluate & Treat Comment: Physician Instructions: Evaluate and Treat Discharge provider: Diego Burnett PA-C Summary Hospital Course Discharge Diagnosis: 1. L3-4 spinal stenosis 2. Neurogenic claudication Hospital Course: 1. L3-4 laminectomy with bilateral partial facetecomies 2. Utilization of microsurgical technique and operating microscope Same procedure as scheduled: Yes Indications: Patient has been having chronic back pain and worsening lumbar radiculopathy and symptoms of neurogenic claudication. Patient was found have severe L3-4 spinal stenosis correlating with her symptoms. Patient failed multiple conservative management with worsening pain weakness and numbness in her lower extremity. Patient has been having difficulty performing activity of daily living. After discussing risks benefits of treatment options, patient elected proceed with surgery. Surgeon: Meenakshi Cervantes Insulator Helper: Avis Gutierrez Click Yes if Unassisted: No Anesthesia Type: General Operative Notes Closure Type: primary Estimated Blood Loss (mL): 5 Blood products transfused: none Patient admitted to the hospital for the above-mentioned diagnosis. Patient consented to the same. Patient underwent L3-L4 laminectomy with bilateral partial facetectomies August 27, 2024. Patient back in her room recovering well as in stable condition. Patient will be discharged home after physical therapy if safe for home environment. Status at Discharge Cognitive/behavioral status at discharge: at baseline, oriented Functional status at discharge: uses cane/walker Overall status at discharge: patient is progressing back to baseline Exam Vital Signs (past 8 hours): Oxygen Delivery Method Room Air Oxygen Flow Rate 0 Narrative Exam Narrative: 74-year-old female resting comfortably in bed in no apparent distress. Neurovascular status is intact bilateral lower extremities. Const General: cooperative and comfortable Nutritional Appearance: average body habitus Orientation: alert [facility] Medical History Fibromyalgia Surgical History Hx laparoscopic cholecystectomy (12/01/23) Social History household members: none Smoking Status: Former smoker alcohol intake: current Discharge Assessment & Plan Assessment and Plan Assessment: Patient progressing as expected Plan of Treatment: multimodal pain management limit bending, twisting, lifting mobilize with physical therapy and discharge home today if safe for home environment. Discharge Plan Discharge Plan Patient Disposition: Home Provider Discharge Comment: Oxycodone sent to [place] from office. Discharge orders & Medications Discharge Orders: Discharge (Order); Ordered 08/28/24 Ordered By: Diego Burnett Prescriptions: New acetaminophen 325 mg Tablet 650 mg PO Q6H PRN (Reason: Fever/Mild Pain (1-3)) Qty: 60 0RF polyethylene glycol 3350 17 gram Powder In Packet 17 g PO DAILY PRN (Reason: Constipation) Qty: 14 0RF oxycodone 5 mg Tablet 5 mg PO Q3H PRN (Reason: Pain, Moderate (4-6)) Qty: 30 0RF Continued ondansetron 4 mg tablet,disintegrating 4 mg PO Q6H PRN (Reason: nausea and vomiting) Qty: 14 0RF ondansetron 4 mg tablet,disintegrating 4 mg PO Q8H PRN (Reason: nausea and vomiting) Qty: 10 0RF gabapentin 300 mg capsule 900 mg PO BEDTIME PRN (Reason: Restless Leg(S)) duloxetine 20 mg capsule,delayed release(DR/EC) 20 mg PO BID tramadol 50 mg tablet 50 mg PO TID PRN (Reason: pain) Qty: 14 0RF Follow up/Referrals: Meenakshi Cervantes MD [Physician] - 09/18/24 1:40 pm ([facility] office in [place]) Brody Patrick MD [Primary Care Provider] - Diet/Activity/Treatments Diet: Diet as Tolerated Activity: No deep bending or twisting at the waist. No lifting more than 10 pounds. Skin/Wound/Dressing Care Report to your healthcare provider any signs of infection, such as:: chills, fever, night sweats, unusual drainage and unusual redness Dressing: May shower. No bathing or otherwise soaking incision. Do not apply any creams, lotions, or ointments to incision. Visit Report/Discharge Packet Instructions: DI for Laminectomy, DI for Prescription Opioid Use Stand Alone Forms: Patient Portal/API, Surgery Discharge Discharge Data Primary Care Provider: Brody Patrick Attending Provider: Meenakshi Cervantes VTE Deep Vein Thrombosis/Pulmonary Embolism Present on Admission: No
[2024-08-28 08:00] VITALS: BP 133/59; PULSE 63; RESP 16; TEMP 36.3; O2SAT 99
[2024-08-28] MEDS: DULOXETINE 20 MG CAPSULE PO (09:25)
[2024-08-28] MEDS: DOCUSATE 100 MG CAPSULE PO (09:36)
--- NOTE | 2024-08-28 09:45 | PT.IIE ---
Current Diagnoses Spinal stenosis, lumbar region with neurogenic claudication (08/27/24) Surgery Performed Operation Date: 08/27/24 15:00 Actual Procedures p L3-4 laminectomy - Meenakshi Cervantes MD Surgical History (Last Reviewed 08/28/24 @ 07:10 by Diego Burnett PA-C) Hx laparoscopic cholecystectomy (12/01/23) Medical History (Last Reviewed 08/28/24 @ 07:10 by Diego Burnett PA-C) Fibromyalgia Physical Therapy Inpatient Evaluation/Re-Eval M1 PT/OT-IP Prior Functional Status Start: 08/28/24 12:44 Freq: NEEDED Status: Active Protocol: Document 08/28/24 09:45 AB (Rec: 08/28/24 12:56 AB [id number]) Medical Review Prior Functional Status Medical History Reviewed Yes Communication able to make needs known Mobility and Gait pt stated that she was independent with all mobilities and ambulation without AD Social History Household Members none Living Arrangements Apartment/Condo Number of Floors (Floors) One Floor Number of Stairs To Enter/Railing? 1 step to enter Home Environment Standard Height Toilet,Tub/ Shower Home Equipment Front Wheel Walker,Bedside Commode,Hand Held Shower,Grab Bars In Shower Additional Social History Comment pt stated that she has friends next door that can assist her if needed pt stated that she does not take showers and only sponge bathes M2 PT-IP Current Condition Start: 08/28/24 12:44 Freq: NEEDED Status: Active Protocol: Document 08/28/24 09:45 AB (Rec: 08/28/24 12:56 AB [id number]) Physical Therapy Current Condition Current Condition Evaluation Date 08/28/24 Treatment Diagnosis s/p L3-4 laminectomy; difficulty in walking Onset Date 08/27/24 M3 PT-IP Subjective Start: 08/28/24 12:44 Freq: NEEDED Status: Active Protocol: Document 08/28/24 09:45 AB (Rec: 08/28/24 12:56 AB [id number]) Subjective Physical Therapy Visit Type Type Initial Evaluation Visit Start Time 09:45 Visit Stop Time 10:10 Number of VOICE NETWORK ADMINISTRATOR Visits 0 Physical Therapy Visit Comments Patient Comments agreeable to do PT Therapy Pain Assessment Pain When Pain Assessed At Rest Pain Present Pain Present Pain Reported Location back Intensity 5 Scale Used Numeric (0 - 10) Pain Management Techniques Modification of Treatment,Re- positioning,Timing of Activity with Medications M4 PT-IP Mobility and Gait Start: 08/28/24 12:44 Freq: NEEDED Status: Active Protocol: Document 08/28/24 09:45 AB (Rec: 08/28/24 12:56 AB [id number]) PT-Bed Mobility Assessment Rolling Type of Rolling Log Rolling Level of Assist Standby Assistance Supine to Sit Supine to Sit Standby Assistance Sit to Supine Sit to Supine Standby Assistance PT-Transfer Assessment Sit to and From Stand Sit to and from Stand Standby Assistance,1 Person Assistance,Use of Upper Extremities Equipment Transfer Assistive Device Gait Belt,Front Wheeled Walker Orthotic/Prosthetic Devices or Brace: No Transfer Ability Level of Assist Standby Assistance Comments Mobility Comments pt supine in bed and agreeable to do PT. obtained PLOF and home set up. post-op folder provided and reviewed contentns. educated pt regarding back precautions and log roll bed mobility. pt completed supine to sit SBA and cues for log roll. no c/o dizziness. completed sit to stand SBA and ambulated in the hallway ~ 150 ft using FWW SBA. completed up/down platform step using FWW SBA to CGA and cues. repeated x 2. pt ambulated back to her room using FWW SBA. pt requested to go back to bed. completed sit to supine SBA and cues. positioned pt in bed. call light and table placed within reach. Gait Assessment Gait Gait Assistance Required: Standby Assistance Distance (Feet) 150 Able to Maintain Weight Bearing Status Yes During Gait Assistive Devices Assistive Device Gait Belt,Front Wheeled Walker Orthotic/Prosthetic Devices or Brace: No Gait Deviations General Gait Pattern Decreased Stride Length Factors Limiting Gait Function Factors Limiting Gait Function Decreased Activity Tolerance, Decreased Sensation,Decreased Strength,Limited Range of Motion,Pain,Poor Balance,Poor Safety Awareness Stair Climbing Assessment Evaluation Level of Assist On Stairs Standby Assistance,Contact Guard Assistance Devices Stair Climbing Assistive Devices Front Wheel Walker Technique/Endurance Stair Climbing Direction Ascend and Descend Stair Climbing Technique Step to Step Number of Steps Climbed 1 Query Text: Stair Climbing Set # Repetitions (reps) 2 PT-Balance Assessment Sitting Balance and Reactions Static Sitting Balance Ability Normal Dynamic Sitting Balance Ability Good Standing Balance and Reactions Static Standing Balance Ability Fair Dynamic Standing Balance Ability Fair Device Used FWW M5 PT-IP Objective Assessments Start: 08/28/24 12:44 Freq: NEEDED Status: Active Protocol: Document 08/28/24 09:45 AB (Rec: 08/28/24 12:56 AB [id number]) Orientation Orientation/Cognition Level of Alertness Alert Orientation Name,Place,Situation Language Function Ability No Deficits Noted Safety Awareness Decreased Safety Awareness Memory Description No Deficits Noted Gross Range of Motion Lower Extremity ROM Assessment Within Functional Limits Strength Lower Extremity Strength Assessment Left Impaired Hip 3+/5 Knee 4-/5 Coordination Assessment Gross Coordination Gross Coordination WNL Sensation Assessment Sensation Sensation Description Numbness Comments Sensation Comments c/o numbness on feet and hands from neuropathy Muscle Tone Muscle Tone WNL Yes M6 PT-IP Treatment Start: 08/28/24 12:44 Freq: NEEDED Status: Active Protocol: Document 08/28/24 09:45 AB (Rec: 08/28/24 12:56 AB [id number]) Physical Therapy Treatment Education Education Provided Precautions,Weight Bearing Status,Post-Op Packet,Safety M7 PT-IP Assessment and Plan Start: 08/28/24 12:44 Freq: NEEDED Status: Active Protocol: Document 08/28/24 09:45 AB (Rec: 08/28/24 12:56 AB [id number]) PT Summary Assessment and Plan Potential Rehabilitation Potential Good Status of Condition at Evaluation Stable Summary Impairments Pain,ROM,Strength,Balance, Coordination,Sensation,Tone, Cognition,Bed Mobility, Transfers,Gait,Activity Tolerance Assessment Summary pt is a 74 y/o F s/p L3-4 laminectomy POD 1. pt with back precautions. pt requiring SBA with mobility using FWW and SBA to CGA with stair climbing using FWW. pt lives alone but stated that her friends/neighbors will be able to assist her if needed. pt may go home when medically stable. Goals Bed Mobility Goal Independent Transfer Goal Independent,Front Wheeled Walker Gait Goal Independent,Front Wheel Walker Gait Distance 200 Other Goals up/down 1 step using FWW mod I Days to Meet Goals 5 Frequency of Treatment Frequency Of Treatment Twice a Day Treatment Plan Physical Therapy Treatment Plan Bed Mobility Training,Transfer Training,Gait Training, Therapeutic Exercise,Balance Retraining,Post Op Education, Discharge Planning,Hot or Cold Pack,Neuromuscular Re-ed, Coordination Retraining,Manual Therapy Precautions Lumbar Precautions Log Roll,No Twisting,Limit Bending,Lifting Restriction of 10 lbs,Gait Belt above Incisional Area Recommendations To Nursing Amount of Assist Needed Standby Assistance Discharge Recommendations PT Discharge Recommendations Home with Assistance Transportation Needs at Discharge Private Vehicle
[2024-08-28] MEDS: ACETAMINOPHEN 325 MG TABLET 650 MG PO (10:00)
[2024-08-28 12:00] VITALS: BP 152/62; PULSE 64; RESP 17; TEMP 36.3; O2SAT 93
--- NOTE | 2024-08-28 12:46 | OT.IP.EVAL ---
Current Diagnoses Spinal stenosis, lumbar region with neurogenic claudication (08/27/24) Surgery Performed Operation Date: 08/27/24 15:00 Actual Procedures p L3-4 laminectomy - Meenakshi Cevrantes MD Past Medical History (Last Reviewed 08/28/24 @ 07:10 by Diego Burnett PA-C) Fibromyalgia Surgical History (Last Reviewed 08/28/24 @ 07:10 by Diego Burnett PA-C) Hx laparoscopic cholecystectomy (12/01/23) Occupational Therapy Inpatient Evaluation/Re-Eval M2 OT-IP Current Condition Start: 08/28/24 12:21 Freq: Status: Active Protocol: Document 08/28/24 12:22 TREVON (Rec: 08/28/24 12:46 TREVON [id number]) Occupational Therapy Current Condition Current Condition Evaluation Date 08/28/24 Treatment Diagnosis s/p L3-L4 laminectomy Diagnosis Onset Date 08/27/24 Post Operative Precautions Lumbar Precautions Log Roll,No Twisting,Limit Bending,Lifting Restriction of 10 lbs,Gait Belt above Incisional Area Weight Bearing Status Weight Bearing Status Full Weight Bearing M3 OT- IP Subjective and Pain Start: 08/28/24 12:21 Freq: Status: Active Protocol: Document 08/28/24 12:22 TREVON (Rec: 08/28/24 12:46 TREVON [id number]) OT- Subjective Occupational Therapy Visit Type Type Initial Evaluation Visit Start Time 11:35 Visit Stop Time 12:12 Notes Pt reclined in bed on entrance of OT. Pt willing to participate in skilled OT evaluation. Occupational Therapy Visit Comments Patient Comments Pt eager to d/c home. Pt reports having many neighbors and friends who will assist her on d/c. OT Pain Assessment Pain When Pain Assessed At Rest Pain Present Pain Present Pain Reported Location back Intensity 5 Description Aching Pain Behaviors Restlessness Management Techniques Re-positioning M4 OT- IP ADL's Start: 08/28/24 12:21 Freq: Status: Active Protocol: Document 08/28/24 12:22 TREVON (Rec: 08/28/24 12:46 TREVON [id number]) OT QAI-Byxp-Efqvjcz General Evaluation Diet Level for Self-Feeding not performed OT ADL-Grooming General Evaluation Grooming Ability Standby Assistance Comments OT Grooming Comments performs sink side with vcs to stand tall and not bend forward due to precautions. OT provides education about taking small steps to gather items rather than twisting. OT ADL-Oral Care General Eval Oral Care Ability Standby Assistance Comments Oral Care Comments performs sink side with spit basin to avoid bending forward OT ADL-Dressing General Eval Upper Body Dressing Ability Standby Assistance Lower Body Dressing Ability Standby Assistance,Contact Guard Assistance Assistive Devices Dressing Assistive Devices Parachute Inspector Comments OT Dressing Comments OT educates pt on use of education program specialist for LB dressing. Pt does not wear socks. Pt is able to doff and don pants and shoes using education program specialist and vcs to avoid bending and twisting. OT ADL-Toileting General Evaluation Toileting Ability Standby Assistance Devices Toileting Assistive Devices Commode,Grab Bars Comments OT Toileting Comments Pt has a toileting aid at home . OT educates pt to stand to perform hygiene in order to avoid bending. OT ADL-Bathing Comments OT Bathing Comments not observed. OT discusses long handled sponge to bathe lower body as well as positioning for sponge bath materials on d/c home. M5 OT- IP IADL's Start: 08/28/24 12:21 Freq: Status: Active Protocol: Document 08/28/24 12:22 [facility] (Rec: 08/28/24 12:46 [facility] [id number]) OT-Instrumental Activities of Daily Living Home Safety Awareness Awareness of Need for Assistance at Home Good Awareness Ability to Problem Solve Emergency Able to Problem Solve Situations Medication Management Medication Management No Deficits Identified Money Management Money Management No Deficits Identified Light Coil Winder Light Coil Winder No Deficits Identified Driving Driving Comments pt does not drive M6 OT- IP Functional Cognition Start: 08/28/24 12:21 Freq: Status: Active Protocol: Document 08/28/24 12:22 GUERANYROMAINE (Rec: 08/28/24 12:46 [facility] [id number]) Cognitive Factors Limiting Selfcare Function Cognitive Ability Level of Alertness Alert Patient Orientation Name,Age,Birthday,Month,Date, Year,Day of Week,Place, Situation Attention Span Ability Capable of Focused Attention, Capable of Sustained Attention Ability to Follow Commands Able to Follow Multi-Step Commands Memory Description No Deficits Noted Safety Awareness No Deficits Noted Problem Solving Ability No deficits Noted Executive Function Ability No Deficits Noted Abstract Thinking Ability No Deficits Noted OT- Vision and Hearing OT- Hearing Assessment OT- Hearing Assessment WFL OT- Vision Assessment Visual Acuity WFL M7 OT- IP Mobility and Balance Start: 08/28/24 12:21 Freq: Status: Active Protocol: Document 08/28/24 12:22 TREVON (Rec: 08/28/24 12:46 [facility] [id number]) OT- Bed Mobility Assessment Rolling Type of Rolling Log Rolling,Roll to Left Level of Assistance Standby Assistance Scooting Scooting to Edge of Bed Independent OT-Transfer Assessment Sit to and From Stand Sit to and from Stand Independent Transfers Transfer Ability Independent Technique Transfer Destination Bed,Toilet Transfer Technique Stand Step Pivot Devices Transfer Assistive Devices Gait Belt,Front Wheeled Walker OT- Gait Assessment Gait Gait Assistance Required: Independent Assistive Devices Assistive Device Gait Belt,Front Wheeled Walker Comments Gait Ability Comments pt amb throughout room with SBA for ADLs OT- Balance Assessment Sitting Balance and Reactions Static Sitting Balance Ability Normal Dynamic Sitting Balance Ability Good Standing Balance and Reactions Static Standing Balance Ability Normal Dynamic Standing Balance Ability Good M8 OT- IP Objective Assessments Start: 08/28/24 12:21 Freq: Status: Active Protocol: Document 08/28/24 12:22 TREVON (Rec: 08/28/24 12:46 [facility] [id number]) OT Gross Range of Motion Upper Extremity Range of Motion Assessment Within Functional Limits OT Strength Upper Extremity Strength Assessment Within Functional Limits OT-Muscle Tone Assessment Muscle Tone WNL No OT Sensation Assessment Edema Edema Absent M9 OT- IP Assessment and Plan Start: 08/28/24 12:21 Freq: Status: Active Protocol: Document 08/28/24 12:22 TREVON (Rec: 08/28/24 12:46 [facility] [id number]) OT Summary Assessment and Plan Potential Rehabilitation Potential Excellent Analytic Complexity at Evaluation Low Summary OT Impairments Pain,Grooming,Dressing, Toileting,Bathing,Toilet Transfers Progress Towards Goals Progressing Toward Goals Assessment Summary Pt is pleasant and cooperative throughout OT eval. Pt is able to state all lumbar precautions. Pt demonstrates BADLs with SBA to CGA needed. OT educated pt on use of AE for LB dressing. Pt demonstrates their use with SBA to CGA with vcs prn. Pt has good safety awareness and support system and is appropriate for d/c home. Pt may benefit from review of LB AE strategies. Goals Self-Feeding Goal Independent Grooming Goal Independent Dressing Goal Independent Toileting Goal Independent Bathing Goal Independent Toilet Transfer Goal Independent Days to Meet Goals 2 Frequency of Treatment Frequency Of Treatment Once a Day Treatment Plan OT Treatment Plan ADL Training,Patient/Family Education Discharge Recommendations OT Discharge Recommendations Home Transportation Needs at Discharge Private Vehicle,Wheelchair/ Cabulance
--- NOTE | 2024-08-28 13:12 | CM.DANOTE ---
Initial DCP Assessment Visit Note Reviewed EMR and team rounds for status updates. Went to meet with pt, however she was working with therapies at the time of this visit. Pt resides independently alone in her own apartment here in [place]. She has several friends who will be helping her wit home post-op recovery and transportation needs for medical f/u visits. She has a friend who will also be helping to transport her home in the late morning. Pt has all of the necessary DME at home, and has a plan for Ortho f/u and OP PT. No CM needs are identified at this time. Payor: Arlene Laird Attending: Dr. Cervantes Pt is a 74 year-old F post-op day 1 from a lumbar laminectomy. She has a hx of worsening lower back pain that radiates down her L-leg, but does not use an AD at baseline for mobility. Conservative efforts of pain control have not had long-lasting benefit, so the plan was made to go forward with surgery w/Dr. Cervantes. She has done well postoperatively with no complications, and has been medically cleared for home d/c. Discharge Planning/Care Management CM Discharge Assessment Start: 08/28/24 13:09 Freq: Status: Active Protocol: Document 08/28/24 13:09 DPL (Rec: 08/28/24 13:11 DPL [id number]) Discharge Planning Assessment Assigned Digital Editor BRIDGTE Huertas Advance Directives? Yes: KAILASH Advance Directives on File No History Provided By Medical Record Expected Length of Stay 1 Has Patient been admitted in last 30 Yes days? Comment Pt was working with therapies at the time of SUSTAINABILITY COMMUNICATOR visit. Prior Living Arrangements House Household Members none Comment Pt has identified several friends who will assisting her w/care needs postoperatively. Type of transporation used prior to Drives own vehicle admit Independent with ADL's Yes Is patient alert and oriented? Yes Caregiver for Another No DME Already Rented / Owned Elevated Toilet Seat,FWW / Walker,Bedside Commode Patient/Family Preference OP PT Therapy Barriers to Discharge No Discharge Plan Home Transportation Arrangement Friend Referrals Initiated None needed Review Status In Process Please Provide Date Initial DC 08/28/24 Assessment Was Performed Pre-Anesthesia Assessment Start: 08/23/24 10:49 Freq: Status: Complete Protocol: Document 08/23/24 10:49 CAB (Rec: 08/23/24 10:56 CAB [id number]) Pre-Anesthesia Assessment PAC Comment Chart review Patient Information Reviewed Via Chart Review Diagnostic Results BMP/CMP,CBC,EKG Comment Labs/EKG @ [facility] 07/31/24 Primary Care Provider Brody Patrick Seen Specialist in Last 12 Months Yes Specialist Seen Emergency,General surgeon, Orthopedist Primary Language [place] Preferred Language [place] Millwork Estimator Required No Height 156.21 cm Weight 49.895 kg Body Mass Index (BMI) 20.4 Hx Anesthesia Reactions No Hx Family Anesthesia Reaction No Hx Malignant Hyperthermia No Hx Blood Transfusion Reaction No: no adverse reactions Anesthesia Review Requested No Arterial Embalmer No alcohol intake current alcohol intake frequency holidays/special occasions only Smoking Status Former smoker Tobacco type cigarettes Substance Use Type does not use Pain Present Pain Reported Musculoskeletal Symptoms Back Pain Patient is completely paralyzed or No completely immobile Mental Status Oriented to own ability Is patient on oxygen? No Hx Sleep Apnea No CPAP/BIPAP use not prescribed Currently Taking a Beta Birdie No Anti-Coagulant Therapy No Cardiac Testing No Hx Pacemaker/ICD No Pacemaker Rep Required? No Cardiac Clearance Received No Urinary Catheter Present No Hx Urinary Self Catheterization No Diabetes No Patient No Lactating No Presence of External or Internal Medical No Devices Received a COVID vaccine? No: GUILLAIN BARRE Marital Status Single Lives With none Patient Discharge Plan Description Return Home Do You Have Any Spiritual Beliefs That No May Affect Your HC Choices? Do You Have Any Cultural Practices That No May Affect Your HC Choices? Emergency Contact Name CODEY Emergency Contact Advance Directives? Yes: POL Advance Directives on File No
--- NOTE | 2024-08-28 14:23 | PC.NURSE ---
Pt is dressed and ready for discharge home with Friend Wander. IV has been removed. d/c instructions reviewed, new medications, time of last dose, reminded Pt to follow back precautions-No BLT, drink plenty of fluids to prevent constipation or dehydration, no driving while taking narcotics and until cleared by MD and follow up as directed. Pt out via w/c by [employer] to POV with Friend and all belongings.
== END 2024-08-28 13:20 | disposition home or self-care (01) ==
LOC: OR 13:22 → AC 16:45
PROVIDERS: PCP Family Medicine; Referring Provider Orthopaedic Surgery Orthopaedic Surgery of the Spine; Visit Provider Orthopaedic Surgery Orthopaedic Surgery of the Spine
PROC: (CPT 63047; principal; 2024-08-27 15:00)
DX: M48.062 Spinal stenosis, lumbar region with neurogenic claudication (principal); M54.16 Radiculopathy, lumbar region
CPT/HCPCS: 63047; 72100; 76000; 97161; 97165; 97530; 97535; J0171; J0330; J0690; J1100; J2405; J2704; J2919; J3010; J3410

== ENCOUNTER → 2024-11-05 14:52 | Outpatient (CLI) | payer MEDICARE, MEDICAID, SELFPAY ==
[2024-08-27 17:08] VITALS: BMI 20.4
== END ==
PROVIDERS: PCP Family Medicine; Visit Provider Family Medicine
DX: N39.0 Urinary tract infection, site not specified (principal)
CPT/HCPCS: 87086

== ENCOUNTER → 2024-11-05 15:07 | Outpatient (CLI) | payer MEDICARE, MEDICAID, SELFPAY ==
[2024-08-27 17:08] VITALS: BMI 20.4
--- NOTE | 2024-11-05 15:09 | DI.CT.S_ITS ---
PROCEDURE: CT HEAD/BRAIN WO CON INDICATIONS: fall this morning and loss of consciousness TECHNIQUE: Noncontrast 4.5 mm thick angled axial sections acquired from the foramen magnum to the vertex, with coronal and sagittal reformats. For radiation dose reduction, the following was used: automated exposure control, adjustment of mA and/or kV according to patient size. COMPARISON: None. FINDINGS: Image quality: Diagnostic. CSF spaces: Basal cisterns are patent. No extra-axial fluid collections. Ventricles are normal in size and shape. Brain: No midline shift. No intracranial masses or hemorrhage. Laird-white matter interface is normal. Leukoaraiosis, commonly caused by small vessel ischemic disease. Skull and face: Calvarium and visualized facial bones are intact, without suspicious lesions. Sinuses: Visualized sinuses and mastoids are clear. IMPRESSION: No acute intracranial pathology. Dictated by: Manfred Grubbs M.D. on 11/05/2024 at 15:47 Approved by: Manfred Grubbs M.D. on 11/05/2024 at 15:48
== END ==
LOC: CT 15:08
PROVIDERS: PCP Family Medicine; Referring Provider Family Medicine; Visit Provider Family Medicine
DX: R40.20 Unspecified coma (principal); N39.0 Urinary tract infection, site not specified; W19.XXXA Unspecified fall, initial encounter
CPT/HCPCS: 70450; 87086

== ENCOUNTER 2024-11-06 13:37 | Emergency (ER) | payer MEDICARE, MEDICAID, SELFPAY ==
[2024-08-27 17:08] VITALS: BMI 20.4
[2024-11-06] VITALS (14 sets, daily range): BP systolic 110–144; BP diastolic 58–75; PULSE 70–90; RESP 16; TEMP 36.8; O2SAT 93–97; BMI 20.7
--- NOTE | 2024-11-06 14:52 | DI.MRI.S_ITS ---
PROCEDURE: MR HEAD/BRAIN WO CON INDICATIONS: Altered mental status TECHNIQUE: Non-contrast axial T1 spin echo, axial T2 fast spin echo, sagittal and axial FLAIR, coronal T2 fast spin echo, axial gradient echo, axial diffusion and ADC through the brain. COMPARISON: [facility], CT, CT HEAD/BRAIN WO CON, 11/05/2024, 15:39. FINDINGS: Image quality: Excellent. CSF spaces: Ventricles appear symmetric in size and shape. Basal cisterns are patent. No extra-axial fluid collections. Brain: No intracranial bleeds or mass effects. There is cerebral volume loss for age. There are periventricular and deep white matter chronic small vessel ischemic changes. Brainstem appears normal. Diffusion-weighted images show no acute infarct. No chronic ischemic insults. Normal intravascular flow voids are present. Skull and face: Calvarial bone marrow is normal in signal. Orbits are normal. Sinuses: Sinuses and mastoids are clear. IMPRESSION: 1. No acute infarction. No acute intracranial bleed, midline shift or mass effect. 2. Age related volume loss and mild white matter small vessel chronic ischemic changes. Dictated by: Jerome Tellez M.D. on 11/06/2024 at 18:15 Approved by: Jerome Tellez M.D. on 11/06/2024 at 18:18
--- NOTE | 2024-11-06 14:54 | ED.AMS ---
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 Has had confusion altered mental status for the past 2 days. She lives alone. No history of slurred speech facial droop. No headache. No numbness or tingling or weakness of the limbs. Patient finds herself wandering in her home and not recalling why she is in certain parts of the house or how she got there. She did have a syncopal episode in the bathroom. Denies any injury from that. No prior history of stroke. Does have history of seizures in the past. However does not recall having a seizure. No new medications. No recent illness fever chills cough cold congestion or urinary complaints. Patient saw her new primary care yesterday and had a normal urinalysis and CT head done yesterday. Related Data Home Medications Medication Instructions Recorded Confirmed duloxetine 20 mg capsule,delayed 40 mg PO QAM 11/05/24 11/05/24 release gabapentin 100 mg capsule 200 mg PO BEDTIME PRN 11/05/24 11/05/24 gabapentin 300 mg capsule 600 mg PO BEDTIME PRN Restless 11/05/24 11/05/24 Leg(S) Previous Rx's Medication Instructions Recorded sulfamethoxazole 800 1 tab PO BID #10 tabs 11/07/24 mg-trimethoprim 160 mg tablet (Bactrim DS) Allergies Allergy/AdvReac Type Severity Reaction Status Date / Time Penicillins Allergy Unknown childhood Verified 11/05/24 12:42 Review of Systems Review of Systems Narrative: GENERAL: Negative chills, fatigue, malaise, fever, sweats. HEENT: Negative sinus pain, ear pain, sore throat RESPIRATORY: Negative dyspnea, cough CARDIOVASCULAR: Negative chest pain, palpitations GASTROINTESTINAL: Negative nausea, vomiting, abdominal pain : Negative dysuria, frequency, hematuria MUSCULOSKELETAL: Negative muscle or bony pain SKIN: Negative rash, skin lesions NEUROLOGIC: Negative weakness, numbness, positive confusion, negative headache negative slurred speech negative facial droop ROS Unobtainable: All systems reviewed & are unremarkable except as noted in HPI and below Patient History Medical History (Updated 11/06/24 @ 18:29 by Donald Pulido MD) Fibromyalgia Surgical History Hx laparoscopic cholecystectomy (12/01/23) Social History household members: none Smoking Status: Former smoker alcohol intake: current Smoking Status: Former smoker alcohol intake frequency: holidays/special occasions only Exam Narrative Exam Narrative: GENERAL: in no distress, not toxic not dyspneic HEAD: Normocephalic. EYES: Pupils equal round ENT: Mucous membranes moist. NECK: Trachea midline. CARDIOVASCULAR: Regular rate and rhythm RESPIRATORY: Clear to auscultation. Breath sounds equal bilaterally. No wheezes, rales, or rhonchi. GASTROINTESTINAL: Abdomen soft, non-tender EXTREMITIES: No gross deformities. BACK: No flank tenderness. NEURO: AOx4. 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 Open/close eyes, close hand: Performs both tasks correctly Best gaze horizontal: Normal Visual neville: No visual loss Facial palsy: Normal symetrical movement Left arm drift: No drift for full 10 sec Right arm drift: No drift for full 10 sec Left leg drift: No drift for full 5 sec Right leg drift: No drift for full 5 sec Limb ataxia: Absent Sensory on face/arms/legs: Normal, no sensory loss Best language: No aphasia, normal Dysarthria: Normal Extinction or inattention: No abnormality Total NIH Stroke scale score: 0 Course Orders Ordered: ED Orders 11/06/24 14:52 MR head/brain wo con Stat 11/06/24 14:53 EKG-12 Lead Stat 11/06/24 15:21 Ammonia (NH3) Stat Complete Blood Count AUTO DIFF Stat Comprehensive Metabolic Panel Urgent Ethanol (ETOH) Stat Thyroid Stimulating Hormone Stat Troponin & CK Cardiac Panel Stat Vital Signs Vital signs: Vital Signs - 8 hr 11/06/24 13:41 11/06/24 14:09 11/06/24 14:09 Temperature 98.2 F Pulse Rate 90 76 Respiratory Rate 16 Blood Pressure 120/73 119/58 L Pulse Oximetry 95 93 Oxygen Delivery Method Room Air 11/06/24 14:30 11/06/24 14:31 11/06/24 14:31 Temperature Pulse Rate 73 74 Respiratory Rate Blood Pressure 129/60 Pulse Oximetry 94 94 Oxygen Delivery Method 11/06/24 14:56 11/06/24 15:00 11/06/24 15:01 Temperature Pulse Rate 72 72 Respiratory Rate Blood Pressure 110/71 Pulse Oximetry 94 95 Oxygen Delivery Method 11/06/24 15:22 11/06/24 15:22 11/06/24 15:30 Temperature Pulse Rate 70 70 Respiratory Rate Blood Pressure 137/60 Pulse Oximetry 95 95 Oxygen Delivery Method 11/06/24 15:30 11/06/24 16:00 11/06/24 16:00 Temperature Pulse Rate 72 Respiratory Rate Blood Pressure 143/67 H 144/67 H Pulse Oximetry 95 Oxygen Delivery Method 11/06/24 16:30 11/06/24 16:30 11/06/24 17:00 Temperature Pulse Rate 75 Respiratory Rate Blood Pressure 131/60 137/75 Pulse Oximetry 94 Oxygen Delivery Method 11/06/24 17:00 11/06/24 17:30 11/06/24 17:30 Temperature Pulse Rate 77 74 Respiratory Rate Blood Pressure 137/65 Pulse Oximetry 95 94 Oxygen Delivery Method MDM - Altered Mental Status Lab Data 11/06/24 15:21 11/06/24 15:21 Labs: Lab Results 11/06/24 Range/Units 15:21 WBC 5.3 (4.5-11.0) X10^3/uL RBC 4.31 (4.0-5.2) X10^6/uL Hgb 13.4 (12.0-16.0) g/dL Hct 39.6 (36-46) % MCV 91.9 (80-100) fL MCH 31.0 (26-34) PG MCHC 33.8 (30-36) % RDW 12.9 (11.6-14.8) % Plt Count 207 (150-400) X10^3/uL Neut % (Auto) 53.7 (50-75) % Lymph % (Auto) 32.6 (25-40) % Mellette % (Auto) 10.6 (3-14) % Eos % (Auto) 1.6 L (2-4) % Baso % (Auto) 1.5 (0-2) % Neut # (Auto) 2900 (0250-2670) /uL Lymph # (Auto) 1700 (1185-1338) /uL Mellette # (Auto) 600 (0-900) /uL Eos # (Auto) 100 (0-450) /uL Baso # (Auto) 100 (0-100) /uL Sodium 138 (137-145) mmol/L Potassium 3.8 (3.4-5.1) mmol/L Chloride 105 (98-107) mmol/L Carbon Dioxide 27 (22-32) mmol/L BUN 9 (7-17) mg/dL Creatinine 0.79 (0.52-1.04) mg/dL Estimated GFR > 60 (>60) mL/min BUN/Creatinine Ratio 11.4 (6-22) Glucose 94 (80-110) mg/dL Calcium 9.0 (8.4-10.2) mg/dL Total Bilirubin 0.6 (0.2-1.3) mg/dL AST 28 (14-36) IU/L ALT 16 (<35) IU/L Alkaline Phosphatase 69 (38-126) U/L Ammonia < 9 L (9-30) umol/L Total Creatine Kinase 42 (30-135) U/L Troponin I < 0.012 (0.01-0.034) ng/mL Total Protein 7.2 (6.3-8.2) g/dL Albumin 4.0 (3.5-5.0) g/dL Globulin 3.2 (1.7-4.1) g/dL Albumin/Globulin Ratio 1.3 (1.0-2.8) TSH 1.04 (0.47-4.68) uIU/mL Ethyl Alcohol < 10 ( - 10) mg/dL Imaging Data CT scan - head: Radiologist's Impression: [address] [address] [address] Scan Report Signed Patient: Louise Powers MR#: [id number] : 1950 Acct:[id number] Age/Sex: 74 / F Date of Service: 11/05/24 Loc: CT Accession Number: [id number] Procedure: CT head/brain wo con Ordering Provider: Carola Flores D.O. PROCEDURE: CT HEAD/BRAIN WO CON INDICATIONS: fall this morning and loss of consciousness TECHNIQUE: Noncontrast 4.5 mm thick angled axial sections acquired from the foramen magnum to the vertex, with coronal and sagittal reformats. For radiation dose reduction, the following was used: automated exposure control, adjustment of mA and/or kV according to patient size. COMPARISON: None. FINDINGS: Image quality: Diagnostic. CSF spaces: Basal cisterns are patent. No extra-axial fluid collections. Ventricles are normal in size and shape. Brain: No midline shift. No intracranial masses or hemorrhage. Laird-white matter interface is normal. Leukoaraiosis, commonly caused by small vessel ischemic disease. Skull and face: Calvarium and visualized facial bones are intact, without suspicious lesions. Sinuses: Visualized sinuses and mastoids are clear. IMPRESSION: No acute intracranial pathology. Dictated by: Manfred Grubbs M.D. on 11/05/2024 at 15:47 Approved by: Manfred Grubbs M.D. on 11/05/2024 at 15:48 MRI brain: Radiologist's Impression: [place] [address] Magnetic Resonance Report Signed Patient: Louise Powers MR#: [id number] : 1950 Acct:[id number] Age/Sex: 74 / F Date of Service: 11/06/24 Loc: ED Accession Number: [id number] Procedure: MR head/brain wo con Ordering Provider: Donald Pulido MD PROCEDURE: MR HEAD/BRAIN WO CON INDICATIONS: Altered mental status TECHNIQUE: Non-contrast axial T1 spin echo, axial T2 fast spin echo, sagittal and axial FLAIR, coronal T2 fast spin echo, axial gradient echo, axial diffusion and ADC through the brain. COMPARISON: [facility], CT, CT HEAD/BRAIN WO CON, 11/05/2024, 15:39. FINDINGS: Image quality: Excellent. CSF spaces: Ventricles appear symmetric in size and shape. Basal cisterns are patent. No extra-axial fluid collections. Brain: No intracranial bleeds or mass effects. There is cerebral volume loss for age. There are periventricular and deep white matter chronic small vessel ischemic changes. Brainstem appears normal. Diffusion-weighted images show no acute infarct. No chronic ischemic insults. Normal intravascular flow voids are present. Skull and face: Calvarial bone marrow is normal in signal. Orbits are normal. Sinuses: Sinuses and mastoids are clear. IMPRESSION: 1. No acute infarction. No acute intracranial bleed, midline shift or mass effect. 2. Age related volume loss and mild white matter small vessel chronic ischemic changes. Dictated by: Jerome Tellez M.D. on 11/06/2024 at 18:15 Approved by: Jerome Tellez M.D. 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 Has had confusion altered mental status for the past 2 days. She lives alone. No history of slurred speech facial droop. No headache. No numbness or tingling or weakness of the limbs. Patient finds herself wandering in her home and not recalling why she is in certain parts of the house or how she got there. She did have a syncopal episode in the bathroom. Denies any injury from that. No prior history of stroke. Does have history of seizures in the past. However does not recall having a seizure. No new medications. No recent illness fever chills cough cold congestion or urinary complaints. Patient saw her new primary care yesterday and had a normal urinalysis and CT head done yesterday. After history and exam CBC CMP MRI brain EKG troponin alcohol level [facility] Medical records reviewed: CT head and urinalysis done yesterday Differential considered: Includes but not limited to stroke TIA seizure dementia dehydration UTI Lab Test results independently reviewed as above. Pertinent findings: WBC 5.3 hemoglobin 13.4 sodium 138 potassium 3.8 BUN 9 creatinine 0.79 glucose 94 troponin less than 0.012 negative alcohol Independently reviewed EKG normal sinus rhythm normal EKG rate 70 Imaging studies independently reviewed: MRI brain no acute finding Consultations: None indicated at this time. Treatments: None indicated at this time Re-evaluations: 6:28 p.m.. Updated patient and friend results. They are reassuring. Patient is eating at this time. She has been under lot of stress financially she states. She thinks this may be contributing to her focusing and concentration. She will follow up with primary care this week for re-evaluation. Return precautions reviewed. She desires discharge home Discussion: Appropriate for discharge home exam is reassuring. Return precautions reviewed with patient. Patient has been under a lot of stress financially recently. This contributed to her lack of focusing and concentration. Exam and laboratory studies imaging studies are reassuring. No stroke seen on MRI. Diagnosis: Forgetfulness Discharge Plan Departure Patient Disposition: Home Clinical Impression: Forgetfulness Instructions: Acute Stress Disorder Activity Restrictions/Additional Instructions: Your exam laboratory studies and imaging studies are reassuring. No prescriptions are indicated at this time. Your symptoms may be due to recent stress. Please see your family doctor this week for re-evaluation. Return if worse if any questions or concerns Prescriptions: No Action sulfamethoxazole-trimethoprim [Bactrim DS] 800-160 mg tablet 1 tab PO BID Qty: 10 0RF gabapentin 100 mg capsule 200 mg PO BEDTIME PRN Patient Comments: takes the 200mg with the 600mg for total of 800mg at bedtime. duloxetine 20 mg capsule,delayed release(DR/EC) 40 mg PO QAM gabapentin 300 mg capsule 600 mg PO BEDTIME PRN (Reason: Restless Leg(S)) Referrals: Carola Flores DO [Primary Care Provider] - Stand Alone Forms: Patient Portal/API/Survey
[2024-11-06 15:31] LABS: Add Manual Diff / Slide Review NO; Basophils Absolute Auto 100 /uL (0-100); Basophils Percent Auto 1.5 % (0-2); Eosinophils Absolute Auto 100 /uL (0-450); Eosinophils Percent Auto 1.6 % (2-4); Hematocrit 39.6 % (36-46); Hemoglobin 13.4 g/dL (12.0-16.0); Lymphocytes Absolute Auto 1700 /uL (1100-4500); Lymphocytes Percent Auto 32.6 % (25-40); Mean Corpuscular HGB Conc 33.8 % (30-36); Mean Corpuscular Volume 91.9 fL (80-100); Monocytes Absolute Auto 600 /uL (0-900); Monocytes Percent Auto 10.6 % (3-14); Neutrophils Absolute Auto 2900 /uL (1500-7000); Neutrophils Percent Auto 53.7 % (50-75); Platelet Count 207 X10^3/uL (150-400); Red Blood Cell Count 4.31 X10^6/uL (4.0-5.2); Red Cell Distribution Width 12.9 % (11.6-14.8); White Blood Cell Count 5.3 X10^3/uL (4.5-11.0)
[2024-11-06 15:44] LABS: Ammonia (NH3) < 9 umol/L (9-30)
[2024-11-06 15:45] LABS: Alanine Aminotransferase 16 IU/L (<35); Albumin Globulin Ratio 1.3 (1.0-2.8); Alkaline Phosphatase 69 U/L (38-126); Aspartate Aminotransferase 28 IU/L (14-36); BUN Creatinine Ratio 11.4 (6-22); Bilirubin Total 0.6 mg/dL (0.2-1.3); Blood Urea Nitrogen 9 mg/dL (7-17); Carbon Dioxide 27 mmol/L (22-32); Chloride 105 mmol/L (98-107); Creatine Kinase 42 U/L (30-135); Estimated Glomerular Filt Rate > 60 mL/min (>60); Ethanol (ETOH) < 10 mg/dL; Globulin 3.2 g/dL (1.7-4.1); Glucose 94 mg/dL (80-110); HEMOLYSIS < 15 (0-50); Potassium 3.8 mmol/L (3.4-5.1); Sodium 138 mmol/L (137-145); Total Protein 7.2 g/dL (6.3-8.2)
--- NOTE | 2024-11-06 15:54 | EKG_ITS ---
[place] [id number] [place] [id number] Test Date: 2024-11-06 Pat Name: Louise Powers Department[facility] Room: Gender: Female Field Advisor: AFSHIN : 1950 Requested By: Order Number: [id number] Reading MD: Vinay Whitman Measurements Intervals [place] Rate: 70 P: 73 CT: 154 QRS: -11 QRSD: 74 T: 55 QT: 374 QTc: 403 Interpretive Statements Normal sinus rhythm Electronically Signed On 11-07-2024 23:45:14 PST by Vinay Whitman
[2024-11-06 15:57] LABS: Troponin I < 0.012 ng/mL (0.01-0.034)
[2024-11-06 16:18] LABS: Thyroid Stimulating Hormone 1.04 uIU/mL (0.47-4.68)
== END 2024-11-06 18:46 | disposition home or self-care (01) ==
PROVIDERS: Emergency Provider Emergency Medicine; PCP Family Medicine
DX: R41.82 Altered mental status, unspecified (principal); R68.89 Other general symptoms and signs
CPT/HCPCS: 36415; 70551; 80053; 80320; 82140; 82550; 84443; 84484; 85025; 93005; 99283; 99284

== ENCOUNTER 2024-11-10 15:42 | Emergency (ER) | payer MEDICARE, MEDICAID, SELFPAY ==
[2024-08-27 17:08] VITALS: BMI 20.4
[2024-11-10 16:05] VITALS: BP 107/83; PULSE 83; RESP 14; TEMP 36.9; O2SAT 94; BMI 20.1
--- NOTE | 2024-11-10 16:44 | EKG_ITS ---
[place] [id number] [place] [id number] Test Date: 2024-11-10 Pat Name: Louise Powers Department: [facility] Room: Gender: Female Inventory Control/Shipping Receiving: BEN : 1950 Requested By: Order Number: [id number] Reading MD: Loi Fuller Measurements Intervals [place] Rate: 67 P: 74 CA: 146 QRS: -21 QRSD: 74 T: 21 QT: 442 QTc: 467 Interpretive Statements Normal sinus rhythm Electronically Signed On 11-11-2024 8:40:42 PST by Loi Fuller
[2024-11-10 16:54] VITALS: PULSE 67; O2SAT 95
[2024-11-10 17:00] VITALS: BP 130/63; PULSE 65; RESP 16; O2SAT 95
[2024-11-10 17:04] LABS: Urine Volume 10mL (spun)
[2024-11-10 17:05] LABS: Bacteria Urine Occasional (0-1); Hyaline Casts Urine 1-5/LPF; Mucus Urine 2+ (Negative); RBC Urine 0-1/HPF (0-5/HPF); Squamous Epithelial Cell Urine 0-1 /HPF (0-5/HPF); WBC Urine 0-1/HPF (0-5/HPF)
[2024-11-10 17:09] LABS: Add Manual Diff / Slide Review NO; Basophils Absolute Auto 100 /uL (0-100); Basophils Percent Auto 1.3 % (0-2); Eosinophils Absolute Auto 0 /uL (0-450); Eosinophils Percent Auto 0.5 % (2-4); Hematocrit 39.8 % (36-46); Hemoglobin 13.7 g/dL (12.0-16.0); Lymphocytes Absolute Auto 1200 /uL (1100-4500); Lymphocytes Percent Auto 20.6 % (25-40); Mean Corpuscular HGB Conc 34.4 % (30-36); Mean Corpuscular Hemoglobin 31.4 PG (26-34); Mean Corpuscular Volume 91.2 fL (80-100); Monocytes Absolute Auto 600 /uL (0-900); Monocytes Percent Auto 10.3 % (3-14); Neutrophils Absolute Auto 3800 /uL (1500-7000); Neutrophils Percent Auto 67.3 % (50-75); Platelet Count 218 X10^3/uL (150-400); Red Blood Cell Count 4.37 X10^6/uL (4.0-5.2); Red Cell Distribution Width 12.7 % (11.6-14.8); White Blood Cell Count 5.6 X10^3/uL (4.5-11.0)
[2024-11-10 17:21] LABS: Alanine Aminotransferase 18 IU/L (<35); Albumin 4.5 g/dL (3.5-5.0); Albumin Globulin Ratio 1.3 (1.0-2.8); Alkaline Phosphatase 75 U/L (38-126); Aspartate Aminotransferase 29 IU/L (14-36); BUN Creatinine Ratio 21.6 (6-22); Bilirubin Total 0.8 mg/dL (0.2-1.3); Blood Urea Nitrogen 22 mg/dL (7-17); Calcium 9.5 mg/dL (8.4-10.2); Carbon Dioxide 23 mmol/L (22-32); Chloride 103 mmol/L (98-107); Estimated Glomerular Filt Rate 58 mL/min (>60); Globulin 3.5 g/dL (1.7-4.1); Glucose 84 mg/dL (80-110); HEMOLYSIS < 15 (0-50); Lipase 207 U/L (23-300); Potassium 3.8 mmol/L (3.4-5.1); Sodium 138 mmol/L (137-145)
[2024-11-10 17:30] VITALS: BP 132/63; PULSE 65; O2SAT 96
[2024-11-10 18:00] VITALS: BP 127/62; PULSE 64; O2SAT 97
[2024-11-10 18:30] VITALS: BP 131/62; PULSE 63; RESP 18; O2SAT 96
--- NOTE | 2024-11-10 19:56 | ED_ITS ---
HPI - Female Genitourinary General Chief complaint: Urogenital-Female Stated complaint: urinary problem, meds not working Time Seen by Provider: 11/10/24 19:56 Source: patient and other Mode of arrival: Wheelchair History of Present Illness HPI Narrative: 74-year-old female no real significant past medical history presents from the ED from home for evaluation of lower abdominal cramping, stating that she was discharged with antibiotics for urinary tract infection but has been having nausea and vomiting when taking this. She states that there is no medication that can help with her nausea or vomiting, but she states that she does feel like her urinary symptoms have improved does have 1 more day of these antibiotics. She also states that she has been feeling dehydrated with darker urine states like she is having worsening hallucinations genetic dreams whenever she is dehydrated. However she states that she has been pushing fluids. She denies any other symptoms such as headache visual disturbances chest pain shortness breath fever chills nausea vomiting abdominal pain or any other GI/ symptoms at this time. Related Data Home Medications Medication Instructions Recorded Confirmed duloxetine 20 mg capsule,delayed 40 mg PO QAM 11/05/24 11/05/24 release gabapentin 100 mg capsule 200 mg PO BEDTIME PRN 11/05/24 11/05/24 gabapentin 300 mg capsule 600 mg PO BEDTIME PRN Restless 11/05/24 11/05/24 Leg(S) Previous Rx's Medication Instructions Recorded sulfamethoxazole 800 1 tab PO BID #10 tabs 11/07/24 mg-trimethoprim 160 mg tablet (Bactrim DS) Allergies Allergy/AdvReac Type Severity Reaction Status Date / Time Penicillins Allergy Unknown childhood Verified 11/10/24 16:10 Review of Systems Review of Systems Narrative: General: Denies fever, chills, weight loss HEENT: Denies headache, eye drainage, eye irritation, head trauma, sore throat, voice change Cardiovascular: Denies any chest pain, palpitations, shortness of breath, tachycardia Respiratory: Denies any shortness of breath, cough, wheeze, stridor GI/: Positive,nausea, vomiting, Denies any abdominal pain, diarrhea, bright red blood per rectum, melanotic stools, urinary frequency, urinary retention, dysuria, hematuria MSK: Denies any joint pain, muscle pains, swelling Skin: Denies any rashes, lesions, discoloration Neuro: Denies any headache, lightheadedness, dizziness, fainting, weakness Psych: Denies SI/HI Patient History Medical History (Updated 11/10/24 @ 20:20 by Vinay Lawton DO) Fibromyalgia Surgical History Hx laparoscopic cholecystectomy (12/01/23) Exam Narrative Exam Narrative: General: Cooperative, comfortable, well-developed, not in acute distress HEENT: Normocephalic, atraumatic, PERRLA, normal sclera, eyelids normal, Neck: Active full range of motion, atraumatic Chest: Normal to inspection, negative crepitus, no overlying erythema ecchymosis Respiratory: Normal respiratory effort, not in acute respiratory distress, clear to auscultation bilaterally negative cough, wheeze, tachypnea, rhonchi, rales Cardiology: Regular rate rhythm negative gallop, murmur, rubs GI/: Normal to inspection, soft, nonrigid, no tenderness to palpation, exam deferred MSK: Full range of active range of motion of all 4 extremities, atraumatic Skin: No rashes lesions noted Neuro: Alert awake oriented x3, moves all 4 extremities spontaneously, cranial nerves intact, able to answer all questions appropriately follows commands appropriately Psych: Cooperative, negative suicidal or homicidal ideations Initial Vital Signs Initial Vital Signs: Vital Signs Temperature 98.5 F 11/10/24 16:05 Pulse Rate 83 11/10/24 16:05 Respiratory Rate 14 11/10/24 16:05 Blood Pressure 107/83 11/10/24 16:05 Pulse Oximetry 94 11/10/24 16:05 Oxygen Delivery Method Room Air 11/10/24 16:05 Course Orders Ordered: ED Orders 11/10/24 16:18 EKG-12 Lead Stat 11/10/24 16:25 Urine Culture Stat Urine Microscopic Stat 11/10/24 16:50 Complete Blood Count AUTO DIFF Stat Comprehensive Metabolic Panel Stat Lipase Stat Discontinued Medications Sodium Chloride (Normal Saline 0.9%) 1,000 mls @ 1,000 mls/hr IV BOLUS ONE Stop: 11/10/24 21:14 Last Infusion: 11/10/24 21:14 Dose: Infused Documented By: Infusion: 11/10/24 21:12 Dose: 0 mls/hr Documented By: Admin: 11/10/24 20:35 Dose: 1,000 mls/hr Documented By: Ondansetron HCl (Ondansetron 4 Mg/2 Ml Inj) 4 mg IV NOW PRN PRN Reason: Nausea And Vomiting Ondansetron HCl (Ondansetron 4 Mg Odt) 4 mg PO NOW PRN PRN Reason: Nausea And Vomiting Vital Signs Vital signs: Vital Signs - 8 hr 11/10/24 16:05 11/10/24 16:54 11/10/24 17:00 Temperature 98.5 F Pulse Rate 83 67 Respiratory Rate 14 Blood Pressure 107/83 130/63 Pulse Oximetry 94 95 Oxygen Delivery Method Room Air 11/10/24 17:00 11/10/24 17:30 11/10/24 17:30 Temperature Pulse Rate 65 65 Respiratory Rate 16 Blood Pressure 132/63 Pulse Oximetry 95 96 Oxygen Delivery Method Room Air 11/10/24 18:00 11/10/24 18:00 11/10/24 18:30 Temperature Pulse Rate 64 63 Respiratory Rate 18 Blood Pressure 127/62 Pulse Oximetry 97 96 Oxygen Delivery Method Room Air 11/10/24 18:30 Temperature Pulse Rate Respiratory Rate Blood Pressure 131/62 Pulse Oximetry Oxygen Delivery Method MDM - Female Genitourinary Differential Diagnosis Differential diagnosis: Likely urinary tract infection and other (Electrolyte abnormality) Lab Data 11/10/24 16:50 11/10/24 16:50 Labs: Lab Results 11/10/24 11/10/24 Range/Units 16:25 16:50 WBC 5.6 (4.5-11.0) X10^3/uL RBC 4.37 (4.0-5.2) X10^6/uL Hgb 13.7 (12.0-16.0) g/dL Hct 39.8 (36-46) % MCV 91.2 (80-100) fL MCH 31.4 (26-34) PG MCHC 34.4 (30-36) % RDW 12.7 (11.6-14.8) % Plt Count 218 (150-400) X10^3/uL Neut % (Auto) 67.3 (50-75) % Lymph % (Auto) 20.6 L (25-40) % [place] % (Auto) 10.3 (3-14) % Eos % (Auto) 0.5 L (2-4) % Baso % (Auto) 1.3 (0-2) % Neut # (Auto) 3800 (0945-3083) /uL Lymph # (Auto) 1200 (7158-0050) /uL [place] # (Auto) 600 (0-900) /uL Eos # (Auto) 0 (0-450) /uL Baso # (Auto) 100 (0-100) /uL Sodium 138 (137-145) mmol/L Potassium 3.8 (3.4-5.1) mmol/L Chloride 103 (98-107) mmol/L Carbon Dioxide 23 (22-32) mmol/L BUN 22 H (7-17) mg/dL Creatinine 1.02 (0.52-1.04) mg/dL Estimated GFR 58 L (>60) mL/min BUN/Creatinine Ratio 21.6 (6-22) Glucose 84 (80-110) mg/dL Calcium 9.5 (8.4-10.2) mg/dL Total Bilirubin 0.8 (0.2-1.3) mg/dL AST 29 (14-36) IU/L ALT 18 (<35) IU/L Alkaline Phosphatase 75 (38-126) U/L Total Protein 8.0 (6.3-8.2) g/dL Albumin 4.5 (3.5-5.0) g/dL Globulin 3.5 (1.7-4.1) g/dL Albumin/Globulin Ratio 1.3 (1.0-2.8) Lipase 207 (23-300) U/L Urine RBC 0-1/hpf (0-5/HPF) Urine WBC 0-1/hpf (0-5/HPF) Ur Squamous Epith Cells 0-1 /hpf (0-5/HPF) Urine Bacteria Occasional (0-1) (None) Hyaline Casts 1-5/lpf (None) Urine Mucus 2+ H (Negative) Vol Urine Centrifuged 10ml (spun) Urine Dip Bedside Urine Glucose Negative Bedside Urine Bilirubin - Negative Bedside Urine Ketone +/- 5 Urine Specific [place] 1.030 Bedside Urine Occult Blood - Negative Bedside Urine pH 6.0 Bedside Urine Protein +/- 15 Bedside Urine Urobilinogen - Negative Bedside Urine Nitrite - Negative Bedside Urine Leukocytes - Negative Esterase ECG Data Interpretation: EKG interpreted ED physician sinuses 67 beats per minute QTC 467 normal axis no STEMI MDM Narrative Medical decision making narrative: 74-year-old female without any past medical history presents for evaluation of nausea and vomiting as well as concerns for dehydration. Patient states that she has started having nausea and vomiting since starting her antibiotics for urinary tract infection. States that this always happens, states it has no medication to help with her nausea and vomiting but she always states that she needs fluids when this happens which is why she presents to the emergency department today. Lab work was unremarkable for leukocytosis normal creatinine BUN. Patient was given 1 L normal saline, urinalysis unremarkable for an acute urinary tract infection. She was instructed to finish her antibiotics and to follow up with her primary care doctor in outpatient setting she verbalized understanding of this and agrees to being discharged home with outpatient follow up Discharge Plan Departure Patient Disposition: Home Clinical Impression: Nausea & vomiting Activity Restrictions/Additional Instructions: Please follow up with your primary care doctor in outpatient setting Please read the discharge instructions sheet carefully and bring all papers to all doctor follow-up visits, as it may contain information that your doctor may want to see. Disease processes change and evolve, if your symptoms worsen or if you develop any new symptoms that are concerning to you please return for evaluation. Your evaluation today does not show any evidence of any life- threatening/serious illnesses requiring admission to the hospital or surgery. Please follow-up with your doctor for re-evaluation in approximately 1 day. Seek immediate medical attention for any worrisome symptoms. *If you do not have a primary care provider please contact the [facility] Resource line at [phone]. They will ask some questions about your medical history and help get you set up with a doctor in the community. Prescriptions: No Action sulfamethoxazole-trimethoprim [Bactrim DS] 800-160 mg tablet 1 tab PO BID Qty: 10 0RF gabapentin 100 mg capsule 200 mg PO BEDTIME PRN Patient Comments: takes the 200mg with the 600mg for total of 800mg at bedtime. duloxetine 20 mg capsule,delayed release(DR/EC) 40 mg PO QAM gabapentin 300 mg capsule 600 mg PO BEDTIME PRN (Reason: Restless Leg(S)) Referrals: Carola Flores DO [Primary Care Provider] - Stand Alone Forms: Patient Portal/API/Survey
[2024-11-10] MEDS: SODIUM CHLORIDE 0.9% 1,000 ML 1000 ML IV (20:35)
== END 2024-11-10 21:15 | disposition home or self-care (01) ==
PROVIDERS: Emergency Medicine; Emergency Provider Student in an Organized Health Care Education/Training Program; PCP Family Medicine
DX: R11.2 Nausea with vomiting, unspecified (principal); Z88.0 Allergy status to penicillin; R10.30 Lower abdominal pain, unspecified
CPT/HCPCS: 36415; 80053; 81003; 81015; 83690; 85025; 87086; 93005; 96360; 99284

== ENCOUNTER → 2024-11-15 09:35 | Outpatient (CLI) | payer MEDICARE, SELFPAY ==
[2024-08-27 17:08] VITALS: BMI 20.4
[2024-11-15 10:53] LABS: Appearance Urine UA CLEAR; Bilirubin Urine UA NEGATIVE (NEGATIVE); Color Urine UA YELLOW; Glucose Urine UA NEGATIVE (Negative); Ketones Urine UA NEGATIVE (NEGATIVE); Leukocyte Esterase Urine UA NEGATIVE (NEGATIVE); Nitrite Urine UA NEGATIVE (Negative); Occult Blood Urine UA NEGATIVE (Negative); Protein Urine UA NEGATIVE (Negative); Urobilinogen Urine UA 0.2 E.U./dL (0.2)
[2024-11-15 11:07] LABS: Bacteria Urine Occasional (0-1); Culture Indicated Urine Cult Not Indicated; Hyaline Casts Urine 0-1/LPF; RBC Urine 0-1/HPF (0-5/HPF); Squamous Epithelial Cell Urine 0-1 /HPF (0-5/HPF); Urine Volume 10mL (spun); WBC Urine 0-1/HPF (0-5/HPF); pH Urine UA 5.5 (4.5-8.0)
== END ==
PROVIDERS: PCP Family Medicine; Referring Provider Family Medicine; Visit Provider Family Medicine
DX: N39.0 Urinary tract infection, site not specified (principal)
CPT/HCPCS: 81001